=== PATIENT | female | born 1970 | race African-American/Black ===

== ENCOUNTER 2016-05-07 07:46 | Day surgery (SDC) | payer OTHER ==
[2016-05-05 11:39] VITALS: BMI 47.6
--- NOTE | 2016-05-07 08:39 | HP ---
Satellite [facility] - Chief Complaint Chief Complaint: left knee pain - Past Medical History Allergies/Adverse Reactions: Allergies Allergy/AdvReac Type Severity Reaction Status Date / Time No Known Drug Allergies Allergy Verified 11/19/15 22:57 SEAFOOD Allergy Rash Uncoded 11/19/15 22:57 Cardiovascular: Yes: HTN. No: AFIB, Aneurysm, Aortic Insufficiency, Aortic Stenosis, CAD, CHF, Deep Vein Thrombosis, Hyperlipdemia, KS, Mitral Insufficiency, Mitral Stenosis, Murmur, Pulmonary Hypertension, Other ...LMP: 04/29/16 Heme/Onc: No: Anemia, B12 Deficiency, Bleeding Disorder, Cancer, Current Chemotherapy, Current Radiation Therapy, Hemochromatosis, Hypercoaguable State, Myeloproliferative Synd, Sickle Cell Disease, Sickle Cell Trait, Thrombocytopenia, Other Endocrine: Yes: Diabetes Mellitus. No: Stanley's Disease, Oregonia's Disease, Diabetes Insipidus, Hyperparathyroidism, Hyperthyroidism, Hypothyroidism, Osteopenia, SIADH, Other - Current Medications Current Medications: Home Medications Medication Instructions Recorded Lisinopril/Hydrochlorothiazide 20 mg PO DAILY 10/23/12 [Lisinopril-Hctz 20-25 mg Tab] Metformin Xr [Glucophage Xr -] 500 mg PO BID 10/23/12 Hydrochlorothiazide 25 mg PO DAILY 05/05/16 Hydrocodone/Acetaminophen [Depew 1 - 2 each PO Q6H #40 tablet MDD 8 05/07/16 5-325 Tablet] Satellite Physical Exam - Physical Examination Vital Signs: Vital Signs Period Temp Pulse Resp BP Sys/Morales Pulse Ox Last 24 Hr 97.6 F 64 18 145/90 98 General Appearance: Well Nourished, Well Developed, Alert & Oriented x3 ENT: Clear Lung: Normal air movement Heart: Regular rate & rhythm Extremities: Other (left knee- + swelling, decr rom, + mcmurrays, +apleys, nvi) Neurological: Intact, Alert, Oriented Satellite Impression/Plan - Impression/Plan Impression: left knee internal derangement Operative Procedure: left knee arthroscopy Date to be Performed: 05/07/16
[2016-05-07] MEDS ORDERED: MIDAZOLAM HCL 2 MG/2 ML SINGLE DOSE VIAL ONE (09:44)
[2016-05-07] MEDS ORDERED: SUCCINYLCHOLINE CHLORIDE 200 MG/10 ML VIAL ONE (10:11)
[2016-05-07] MEDS ORDERED: ceFAZolin SODIUM 1 GM VIAL IVPB ONE (10:27)
[2016-05-07] MEDS ORDERED: ALBUTEROL SO4 6.7 GM HFA INHALER IH ONE (10:44)
[2016-05-07] MEDS ORDERED: ACETAMINOPHEN INJECTION 100 ML IVPB ONE (10:48)
[2016-05-07] MEDS ORDERED: BUPIVACAINE HCL/PF 0.5% (5MG/ML) 10 ML VIAL IJ ONE (10:55)
[2016-05-07] MEDS ORDERED: ACETAMINOPHEN 1000 MG/100 ML VIAL (NON FORMULARY) IVPB ONE (10:55)
--- NOTE | 2016-05-07 11:04 | OP ---
Operative Note - Note: Operative Date: 05/07/16 Pre-Operative Diagnosis: left knee medial meniscus tear, OA Operation: left knee arthroscopy, partial medial meniscectomy, debridement chondroplasty, excision of plica Findings: OA, Grade IV PF joint, Grade II-III medial compartment, Grade I lateral compartment, medial plica Post-Operative Diagnosis: Same as Pre-op Surgeon: Daniel Stafford Anesthesiologist/PSYCHOLOGY DEPARTMENT CHAIR: Wally Mackey Anesthesia: General, Local Specimens Removed: shavings Estimated Blood Loss (mls): 0 Blood Volume Replaced (mls): 0 Fluid Volume Replaced (mls): 500 Operative Report Dictated: Yes
[2016-05-07] MEDS ORDERED: PROMETHAZINE HCL 25 MG/1 ML VIAL IVPUSH PRN (11:15)
[2016-05-07] MEDS ORDERED: LACTATED RINGERS SOLUTION 1,000 ML IV SCH (11:15)
[2016-05-07] MEDS ORDERED: ONDANSETRON 4 MG/2 ML VIAL IVPUSH PRN (11:15)
[2016-05-07] MEDS ORDERED: oxyCODONE HCL 5 MG TABLET PO PRN (11:15)
[2016-05-07 11:59] VITALS: TEMP 98
[2016-05-07 13:32] VITALS: BP 119/68; PULSE 68
--- NOTE | 2016-05-08 11:33 | OP ---
DATE OF OPERATION: 05/07/2016 PREOPERATIVE DIAGNOSIS: Left knee pain, medial meniscus tear, osteoarthritis. POSTOPERATIVE DIAGNOSIS: Left knee pain, medial meniscus tear, osteoarthritis, plus medial plica. SURGEON: Srinivasan Rooney MD PUMP AND STILL OPERATOR: None. ANESTHESIOLOGIST: Wally Mackey MD ANESTHESIA: LMA anesthesia, local injection of 20 mL of 0.5% Marcaine and 1% lidocaine mixed. . PROCEDURE: Left knee arthroscopy, partial medial meniscectomy, debridement chondroplasty, and plica excision. SPECIMENS: Arthroscopic shavings. DRAINS: None. COMPLICATIONS: None. FLUID REPLACEMENT: 500 mL. INDICATIONS: This patient is a 45-year-old female with a preoperative diagnosis of left knee pain, medial meniscus tear, and osteoarthritis. After understanding the potential risks, complications, alternatives, and benefits of surgical versus nonsurgical treatment, the patient elected to undergo this procedure. DESCRIPTION OF PROCEDURE: The patient was brought to the operating room, peripheral IV placed, and IV sedation was given. Two grams of IV Ancef were given. Ample padding was placed around the left thigh. A tourniquet was applied. C-clamp leg-rangel was applied. Esmarch bandage was used to exsanguinate the left lower extremity. Tourniquet was elevated, the tourniquet inflated to 275 mmHg. A superomedial outflow portal was established, the lateral portal was established, and an arthroscope was introduced into the joint under direct visualization using a spinal needle. The medial portal was established, and a diagnostic arthroscopy was performed. In the medial compartment, the patient was seen to have a complex tear, although it was not that bad, of the posterior horn of the medial meniscus. Patient had grade 2 chondromalacia changes of the medial tibial plateau and widespread grade 2 changes of the medial femoral condyle with small areas of grade 3. Gentle debridement chondroplasty was performed, and a partial medial meniscectomy was performed. Photographs were taken before and after. After the meniscectomy, I probed the medial meniscus and overall it looked quite good, and what was left was stable. I only took out perhaps 10% of the medial meniscus. I then probed the anterior cruciate ligament. There was a small cyclops lesion. This was debrided. I debrided the top portion and the bottom portion of these torn fibers, but the rest of the ACL looked good. I probed it. It had the appropriate tension. I did not need to do anything to the anterior cruciate ligament. Next, our attention turned to the lateral compartment. There was some very mild amount of degenerative type fraying of the lateral meniscus. This was debrided with the shaver. There was some grade 2 chondromalacia of the lateral tibial plateau. This was debrided. The lateral femoral condyle looked good with no arthritis. Next, our attention turned to the patellofemoral joint. Patient had some significant areas of grade 4 and surrounding grade 3 chondromalacia of both the femoral trochlea and the undersurface of the patella. This was debrided with the curved shaver. I did a little synovectomy, and this revealed a significant medial plica. Photographs were taken. It was then excised. This was right in the area of the cartilaginous damage. The area was copiously irrigated and washed out. All instrumentation removed. All excess saline removed. The arthroscopy portal was closed with 3-0 nylon sutures. The area was then washed and dried and covered with Xeroform, 4x4, Webril, and an Rashid bandage. The tourniquet was taken down after a total tourniquet of 20 minutes. There were no complications during the case. The patient tolerated the procedure well, was brought to the ambulatory recovery room in stable condition. SRINIVASAN ROONEY M.D. [id number]
--- NOTE | 2016-05-09 09:27 | PATH ---
Surgical Pathology Report Patient Name: MIRELA FRIAS [facility]. Rec. #: [id number] /Age/Gender: 1970 (Age: 45) / F Account: [id number] Location: [facility] Taken: 05/07/2016 Received: 05/07/2016 Reported: 05/09/2016 Physicians: Daniel Stafford M.D. 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 FIBROCARTILAGE WITH MYXOID DEGENERATIVE CHANGES, ALONG WITH PORTIONS OF SYNOVIUM AND HYALINE CARTILAGE. Electronically Signed Fran Zaragoza M.D. Gross Description Received in formalin, labeled "left knee shavings," is a 3.5 x 2.0 x 0.2 cm aggregate of porter yellow soft tissue fragments. The formalin is filtered and the specimen is entirely submitted in one cassette. 05/07/201605/07/2016
== END 2016-05-07 14:20 | disposition home or self-care (01) ==
LOC: JASU-SURG 07:46
PROVIDERS: ATTEND Orthopaedic Surgery
PROC: 0SBD4ZZ Excision of Left Knee Joint, Percutaneous Endoscopic Approach (ICD-10-PCS; 2016-05-07)
PROC: 0SBD4ZZ Excision of Left Knee Joint, Percutaneous Endoscopic Approach (ICD-10-PCS; principal; 2016-05-07 09:30)
DX: M23.222 Derangement of posterior horn of medial meniscus due to old tear or injury, left knee (principal); M94.262 Chondromalacia, left knee; M17.12 Unilateral primary osteoarthritis, left knee; M67.52 Plica syndrome, left knee
CPT/HCPCS: 29881; G0289; 84703; 88304-TC; 94760; 97116-GP

== ENCOUNTER 2016-06-29 16:20 | Emergency (ER) | payer OTHER ==
[2016-06-29 16:29] VITALS: BMI 48.2
--- NOTE | 2016-06-29 17:26 | PDOC ---
History of Present Illness - General Chief Complaint: Chest Pain Stated Complaint: CHEST PAIN Time Seen by Provider: 06/29/16 17:15 History Source: Patient Exam Limitations: No Limitations - History of Present Illness Initial Comments: 06/29/16 17:32 Midsternal chest pain intermittent with palpitations and irregularities 3 days. Patient states pain is midsternal and chest wall, had some intermittent left arm radiation, has some mild gastritis associated. States this morning started to have a nonproductive but moist cough this morning. Denies fever or earache sore throat pain. Denies recent exercise changes or strenuous activity causing any musculoskeletal problems. No one else at home is ill. Has never had any cardiac issues. Is diabetic using metformin, and states her blood sugars have been running well this morning 03/23/2014 and A1c at 6 most recently. Is hypertensive and is taking lisinopril and hydrochlorothiazide. States today when she had chest pain with radiation and some dizziness, this urged her to come to emergency department for evaluation 06/29/16 17:35 07/02/16 09:48 Timing/Duration: unsure Severity: mild Associated Symptoms: reports: chest pain, fever/chills, malaise. denies: denies symptoms, syncope (dizziness) Past History - Travel Traveled outside of the country in the last 30 days: No Close contact w/someone who was outside of country & ill: No - Past Medical History Allergies/Adverse Reactions: Allergies Allergy/AdvReac Type Severity Reaction Status Date / Time shellfish derived Allergy Severe Hives Verified 05/07/16 08:40 No Known Drug Allergies Allergy Verified 11/19/15 22:57 Home Medications: Ambulatory Orders Lisinopril/Hydrochlorothiazide [Lisinopril-Hctz 20-25 mg Tab] 20 mg PO DAILY 06/02 Metformin Xr [Glucophage Xr -] 500 mg PO BID 10/23/12 Iron 0 mg PO DAILY 06/29/16 Anemia: Yes Asthma: Yes Cancer: No Cardiac Disorders: No CVA: No COPD: No CHF: No Dementia: No Diabetes: Yes GI Disorders: Yes (ULCER) Disorders: No HTN: Yes Hypercholesterolemia: No Liver Disease: No Psychiatric Problems: Yes (ANXIETY.) Seizures: No Thyroid Disease: No - Surgical History Abdominal Surgery: Yes Cholecystectomy: Yes - Psycho/Social/Smoking Cessation Hx Anxiety: Yes Suicidal Ideation: No Smoking Status: Yes Smoking History: Current every day smoker Have you smoked in the past 12 months: Yes Number of Cigarettes Smoked Daily: 4 Information on smoking cessation initiated: No 'Breaking Loose' booklet given: 05/05/16 Hx Alcohol Use: No Drug/Substance Use Hx: No Substance Use Type: None Hx Substance Use Treatment: No Review of Systems - Review of Systems Able to Perform ROS?: Yes Is the patient limited Polish proficient: Yes Constitutional: Yes: Symptoms Reported, See HPI, Loss of Appetite, Malaise. No : Fever HEENTM: Yes: See HPI. No: Symptoms Reported Respiratory: Yes: Symptoms reported, See HPI, Cough. No: Orthopnea, Shortness of Breath, Wheezing Cardiac (ROS): Yes: Symptoms Reported, See HPI, Chest Pain, Irregular Heart Rate , Lightheadedness, Chest Tightness ABD/GI: Yes: Symptoms Reported, See HPI, Indigestion : Yes: See HPI. No: Symptoms Reported Musculoskeletal: Yes: Symptoms Reported Integumentary: Yes: Symptoms Reported, Pallor Neurological: Yes: See HPI. No: Symptoms reported, Headache, Numbness, Paresthesia All Other Systems: Reviewed and Negative *Physical Exam - Vital Signs Last Vital Signs Temp Pulse Resp BP Pulse Ox 97.9 F 70 20 159/96 95 06/29/16 16:26 06/29/16 16:26 06/29/16 16:26 06/29/16 16:26 06/29/16 16:26 - Physical Exam General Appearance: Yes: Nourished, Appropriately Dressed, Apparent Distress, Mild Distress HEENT: positive: MICHAEL, Normal ENT Inspection, TMs Normal, Pharynx Normal Neck: positive: Supple. negative: Tender, Lymphadenopathy (R), Lymphadenopathy (L) Respiratory/Chest: positive: Lungs Clear, Normal Breath Sounds (no wheezing or retractions, no respiratory distress) Cardiovascular: positive: Regular Rhythm, Regular Rate Gastrointestinal/Abdominal: positive: Tender (mild and diffuse, no rebound or guarding), Soft, Guarding, Rebound. negative: Hepatomegaly, Spleenomegaly Musculoskeletal: positive: Normal Inspection. 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 Will probably need admission and patient understands will have probable need for admission due to her risk factors, and symptomatology. *DC/Admit/Observation/Transfer Diagnosis at time of Disposition: Chest pain Qualifiers: Chest pain type: unspecified Qualified Code(s): R07.9 - Chest pain, unspecified - Discharge Dispostion Condition at time of disposition: Stable Admit: Yes - Referrals Referrals: STAFF,NOT ON [Primary Care Provider] -
[2016-06-29] MEDS ORDERED: ASPIRIN 81 MG CHEWABLE TABLETS PO ONE (17:27)
[2016-06-29] MEDS ORDERED: ASPIRIN 81 MG CHEWABLE TABLETS ONE (17:35)
[2016-06-29 17:57] LABS: BASOPHIL 0.6 % (0-2.0); EOSINOPHIL 2.6 % (0-4.5); MCH 24.5 pg (25.7-33.7); MEAN CELL VOLUME 76.7 fl (80-96); MEAN PLT VOLUME 8.5 fl (7.5-11.1); NEUTROPHILS 62.2 % (42.8-82.8); PLATELET COUNT 236 K/MM3 (134-434); RDW 24.5 % (11.6-15.6); WHITE BLOOD COUNT 5.2 K/mm3 (4.0-10.0)
[2016-06-29] MEDS ORDERED: ACETAMINOPHEN 1000 MG/100 ML VIAL (NON FORMULARY) IVPB ONE (18:02)
[2016-06-29 18:09] LABS: INR 0.87 (0.82-1.09); PROTHROMBIN TIME (PATIENT) 9.5 SEC (9.98-11.88)
[2016-06-29] MEDS ORDERED: ACETAMINOPHEN INJECTION 100 ML IVPB ONE (18:10)
[2016-06-29 18:27] LABS: ALBUMIN 3.7 g/dl (3.4-5.0); ANION GAP 9 (8-16); BILIRUBIN,TOTAL 0.3 mg/dL (0.2-1.0); CO2 29 mmol/L (21-32); COCKROFT - GAULT 135.3625; CREATININE 1.1 mg/dL (0.55-1.02); GLUCOSE,RANDOM 105 mg/dL (74-106); MAGNESIUM 1.9 mg/dL (1.8-2.4); SGOT/AST 25 U/L (15-37); SGPT/ALT 52 U/L (12-78); TOT PROT 7.6 g/dl (6.4-8.2)
[2016-06-29 18:30] LABS: ALK PHOS 100 U/L (45-117); TROPONIN I < 0.02 ng/ml (0.00-0.05)
[2016-06-29 18:43] LABS: ANISOCYTOSIS 2+; MICROCYTOSIS 1+; OVALOCYTES FEW; PLATELET ESTIMATE ADEQUATE (NORMAL)
--- NOTE | 2016-06-29 23:07 | CONSULT ---
Addendum entered and electronically signed by Dipak Josue RES 06/30/16 04: 37: Orthostatic BP: Supine: 120/62 Hr 62 Sittin/71 Hr 65 Standin/76 HR 72 Original Note: Consultation: REQUESTING PROVIDER: CONSULT REQUEST: We have been asked to medically evaluate this patient for intermittent chest pain. HISTORY OF PRESENT ILLNESS: 45 yr old woman with NIDDM, HTN, morbid obesity, anemia, current smoker, presents with 2 weeks of intermittent left sided "pressure-like" chest pain, left shoulder and left arm pain associated with intermittent palpitations, "skipped beats," dizziness and generalized body aches. The chest pain has been continuous since it started, associated symptoms are intermittent lasting few seconds to minutes. Dizziness occurs when she stands from a sitting position and when she sits up suddenly and resolves quickly. Symptoms would occur at rest and with walking with no alleviating or exacerbating factors. She has also been having "hot flashes" that last few minutes associated with the palpitations and an intermittent non-productive cough that started this morning. She started to take 81mg of ASA every other day for the past two weeks for the chest pain without relief. While watching TV this morning she had a 1-2 minute episode of left arm tingling and numbness that self-resolved which prompted her to come to the ED. She denies loss of muscle tone or pain during the episodes. For the past week she had an "abscess" in her mouth, under the left molar that "popped" on thursday while she was sleeping. Medical hx: DM, HTN, anemia requiring multiple transfusions Surgical hx: 2004 cholecystectomy, 1998 and 1999 c-sections, 1999 tubal ligation , ectopic with left fallopian tube removed 1991. may 07 2016 b/l meniscal and ACL repair. Family hs: 3 brother from unknown cancer, mother with HTN and DM. Allergies seafood- hives and scratchy throat Social: smoking started age 11, started with 3pks/day then 1pk/day for 1 yr and now currently 5cig/week ETOH: socially Drug: denies REVIEW OF SYSTEMS: CONSTITUTIONAL: Present: generalized aches Absent: fever, chills, diaphoresis, generalized weakness, malaise, loss of appetite, weight change HEENT: Absent: rhinorrhea, nasal congestion, throat pain, throat swelling, difficulty swallowing, mouth swelling, ear pain, eye pain, visual changes CARDIOVASCULAR: Present: chest pain, irregular heart rate, Absent: syncope, palpitations,lightheadedness, peripheral edema RESPIRATORY: Present:cough, Absent: shortness of breath, dyspnea with exertion, orthopnea, wheezing, stridor, hemoptysis GASTROINTESTINAL: Absent: abdominal pain, abdominal distension, nausea, vomiting, diarrhea, constipation, melena, hematochezia GENITOURINARY: Absent: dysuria, frequency, urgency, hesitancy, hematuria, flank pain, genital pain MUSCULOSKELETAL: Absent: myalgia, arthralgia, joint swelling, back pain, neck pain SKIN: Absent: rash, itching, pallor HEMATOLOGIC/IMMUNOLOGIC: Absent: easy bleeding, easy bruising, lymphadenopathy, frequent infections ENDOCRINE: Absent: unexplained weight gain, unexplained weight loss, heat intolerance, cold intolerance NEUROLOGIC: Absent: headache, focal weakness or paresthesias, dizziness, unsteady gait, seizure, mental status changes, bladder or bowel incontinence PSYCHIATRIC: Absent: anxiety, depression, suicidal or homicidal ideation, hallucinations. PHYSICAL EXAMINATION Vital Signs - 24 hr 06/29/16 06/29/16 06/29/16 16:26 17:31 19:32 Temperature 97.9 F 98.5 F Pulse Rate 70 Pulse Rate [ 72 Radial] Respiratory 20 21 Rate Blood Pressure 159/96 Blood Pressure 154/83 [Arm] O2 Sat by Pulse 95 98 96 Oximetry (%) GENERAL: Awake, alert, and fully oriented, in no acute distress. HEAD: Normal with no signs of trauma. EYES: Pupils equal, round and reactive to light, extraocular movements intact, sclera anicteric, conjunctiva clear. No lid lag. EARS, NOSE, THROAT: Ears normal, nares patent, oropharynx clear without exudates. Moist mucous membranes. NECK: Normal range of motion, supple without lymphadenopathy, JVD, or masses. LUNGS: Breath sounds equal, clear to auscultation bilaterally. No wheezes, and no crackles. No accessory muscle use. HEART: Regular rate and rhythm, normal S1 and S2 without murmur, rub or gallop. ABDOMEN: morbidly obese, soft, nontender, not distended, normoactive bowel sounds, no guarding, no rebound, no masses. MUSCULOSKELETAL: Normal range of motion at all joints. No bony deformities. No CVA tenderness. chest nontender. left shoulder mild ttp. ttp b/l knees UPPER EXTREMITIES: 2+ pulses, warm, well-perfused. No cyanosis. No clubbing. Cap refill <2 seconds. No peripheral edema. LOWER EXTREMITIES: 2+ pulses, warm, well-perfused. No calf tenderness. No peripheral edema. NEUROLOGICAL: Cranial nerves II-XII intact. Normal speech. Normal gait. PSYCHIATRIC: Cooperative. Good eye contact. Appropriate mood and affect. SKIN: Warm, dry, normal turgor, no rashes or lesions noted. Laboratory Results - last 24 hr 06/29/16 06/29/16 06/29/16 17:45 17:45 17:45 WBC 5.2 RBC 5.08 Hgb 12.5 D Hct 39.0 D MCV 76.7 L MCHC 32.0 RDW 24.5 H Plt Count 236 MPV 8.5 Neutrophils % 62.2 Lymphocytes % 27.3 Monocytes % 7.3 Eosinophils % 2.6 Basophils % 0.6 Platelet Estimate Adequate Platelet Comment No clumping noted Anisocytosis 2+ Microcytosis 1+ Ovalocytes Few INR 0.87 Sodium 142 Potassium 3.3 L Chloride 104 Carbon Dioxide 29 Anion Gap 9 BUN 16 D Creatinine 1.1 H Creat Clearance w eGFR 53.24 Random Glucose 105 Calcium 9.0 Magnesium 1.9 Total Bilirubin 0.3 D AST 25 ALT 52 D Alkaline Phosphatase 100 Creatine Kinase 132 Troponin I < 0.02 Total Protein 7.6 Albumin 3.7 ASSESSMENT/PLAN: 45 year old woman with morbid obesity, HTN and NIDDM presents with chest pain and generalized body aches for two weeks. - Heart score 3, GREGG score 2, Trops x2 negative, EKG in NSR without acute ischemic changes. Low suspicion for ACS, recommend patient follow-up with [facility] as outpatient for stress test and further cardiac evaluation. - She is afebrile without leucocytosis with clear chest xray and was flu swab negative, unlikely that infection is the cause of her symptoms. - TSH is within normal limits as well as random glucose level. - elevated creatinine likely due to increased ASA intake during past 2 weeks. Differential is broad and included cardiac, infectious or endocrine in etiology however work-up currently is negative. Patient is stable for outpatient follow- up with PCP and cardiology. Counseling provided for smoking cessation, healthy diet and exercise. Instructions provided to return to hospital if symptoms worsen or any new symptoms develop. Visit type - Emergency Visit Emergency Visit: Yes Care time: The patient presented to the Emergency Department on the above date and was hospitalized for further evaluation of their emergent condition. - New Patient This patient is new to me today: Yes Date on this admission: 06/29/16 - Critical Care Critical Care patient: No
[2016-06-30 00:09] VITALS: BP 145/79; PULSE 78; TEMP 98.7
--- NOTE | 2016-06-30 11:26 | EKG ---
Test Reason : Blood Pressure : / mmHG Vent. Rate : 069 BPM Atrial Rate : 069 BPM P-R Int : 160 ms QRS Dur : 082 ms QT Int : 414 ms P-R-T Axes : 035 045 018 degrees QTc Int : 443 ms NORMAL SINUS RHYTHM NORMAL ECG WHEN COMPARED WITH ECG OF 30-MAR-2015 18:56, NO SIGNIFICANT CHANGE WAS FOUND Confirmed by STUART MORALEZ MD ([id number]) on 06/30/2016 11:25:36 AM Referred By: Confirmed By:STUART MORALEZ MD
== END 2016-06-30 00:10 ==
LOC: JER 16:20
PROC: 3E033NZ Introduction of Analgesics, Hypnotics, Sedatives into Peripheral Vein, Percutaneous Approach (ICD-10-PCS; principal; 2016-06-29)
DX: R07.89 Other chest pain (principal); I10 Essential (primary) hypertension; E11.9 Type 2 diabetes mellitus without complications; Z79.84 Long term (current) use of oral hypoglycemic drugs; E66.01 Morbid (severe) obesity due to excess calories; Z68.42 Body mass index [BMI] 45.0-49.9, adult
CPT/HCPCS: 36415; 71010-TC; 80053; 82550; 83735; 84443; 84484; 85025; 85610; 87804; 93005; 93010; 96374; 99285-25

== ENCOUNTER 2016-12-13 12:36 | Emergency (ER) | payer OTHER ==
[2016-12-13 12:48] VITALS: BP 137/64; PULSE 87; TEMP 98.4; BMI 48.7
[2016-12-13] MEDS ORDERED: ACETAMINOPHEN 1000 MG/100 ML VIAL (NON FORMULARY) IVPB ONE (13:09)
[2016-12-13] MEDS ORDERED: METHOCARBAMOL 500 MG TABLET PO ONE (13:09)
--- NOTE | 2016-12-13 13:10 | PDOC ---
History of Present Illness - General Chief Complaint: Weakness Stated Complaint: LETHARGIC (PCP SENT) Time Seen by Provider: 12/13/16 12:55 History Source: Patient Exam Limitations: No Limitations - History of Present Illness Initial Comments: 12/13/16 13:07 This is a 46 yo F with h/o DM, HTN, Anemia related to fibroids Pt presents to the ER with a complaint of weakness, dizziness, shortness of breath with exertion Pt states, she was seen by her PMD on 12/07, labs sent, Hgb 11 Pt states that she has had shortness of breath on exertion she noted dizziness (no vertigo) with exertion, she states that she is out of breath after 1/2 block She also notes bodyaches diffusely which has also been present for the past month She has been taking Aleeve for her pain which seems to be the only thing that helps her No fevers or chills No recent travel PMH: Gastric Ulcer, HTN, DM, Anemia secondary to fibroids PSH: C section x 2, R- oophorectomy Meds: Lisinopril, HCTZ, Metformin, Iron, Mobic ALL: Shellfish --> hives, denies drug use, social alcohol, tobacco: 1pack per week, lives with , independent ADLs 12/13/16 13:10 GENERAL/CONSTITUTIONAL: Yes: weakness No: fever, chills, loss of appetite. HEAD, EYES, EARS, NOSE AND THROAT: No: change in vision, ear pain, discharge, sore throat, throat swelling. CARDIOVASCULAR: No: chest pain, lightheadedness, palpitations, syncope RESPIRATORY: Yes: shortness of breath No: cough GASTROINTESTINAL: No: nausea, vomiting, diarrhea, abdominal pain GENITOURINARY: No: dysuria, hematuria, frequency, urgency, flank pain. MUSCULOSKELETAL: Yes: muscle pain, skin pain, No: back pain, neck pain SKIN: No: rash or easy bruising. NEUROLOGIC: No: headache, vertigo, paresthesias, weakness GENERAL: The patient is in no acute distress. HEAD: Normal with no signs of trauma. EYES: PERRLA, EOMI, sclera are not pale ENT: Ears normal, nares patent, oropharynx clear without exudates. Dry mucous membranes. NECK: Normal range of motion, supple without lymphadenopathy, JVD, or masses. LUNGS: Breath sounds equal, clear to auscultation bilaterally. No wheezes, and no crackles. HEART:Regular rate and rhythm, normal S1 and S2 without murmur, rub or gallop. ABDOMEN: Soft, nontender, normoactive bowel sounds. No guarding, no rebound. EXTREMITIES: Normal range of motion, no edema. Diffuse muscle tenderness to palpation NEUROLOGICAL: Cranial nerves II through XII grossly intact. Normal speech. No focal neurological deficits. MUSCULOSKELETAL: Diffuse muscle aches SKIN: Warm, normal turgor, no rashes or lesions noted. 12/13/16 13:23 Past History - Past Medical History Allergies/Adverse Reactions: Allergies Allergy/AdvReac Type Severity Reaction Status Date / Time shellfish derived Allergy Severe Hives Verified 12/13/16 12:48 No Known Drug Allergies Allergy Verified 12/13/16 12:48 Home Medications: Ambulatory Orders Lisinopril/Hydrochlorothiazide [Lisinopril-Hctz 20-25 mg Tab] 20 mg PO DAILY 06/02 Metformin Xr [Glucophage Xr -] 500 mg PO BID 10/23/12 Iron 0 mg PO DAILY 06/29/16 Anemia: Yes Asthma: Yes Cancer: No Cardiac Disorders: No CVA: No COPD: No CHF: No Dementia: No Diabetes: Yes GI Disorders: Yes (ULCER) Disorders: No HTN: Yes Hypercholesterolemia: No Liver Disease: No Psychiatric Problems: Yes (ANXIETY.) Seizures: No Thyroid Disease: No - Surgical History Abdominal Surgery: Yes Cholecystectomy: Yes - Suicide/Smoking/Psychosocial Hx Smoking Status: Yes Smoking History: Current every day smoker Have you smoked in the past 12 months: Yes Number of Cigarettes Smoked Daily: 4 Information on smoking cessation initiated: No 'Breaking Loose' booklet given: 05/05/16 Hx Alcohol Use: No Drug/Substance Use Hx: No Substance Use Type: None Hx Substance Use Treatment: No *Physical Exam - Vital Signs Last Vital Signs Temp Pulse Resp BP Pulse Ox 98.4 F 87 20 137/64 97 12/13/16 12:43 12/13/16 12:43 12/13/16 12:43 12/13/16 12:43 12/13/16 12:43 ED Treatment Course - LABORATORY CBC & Chemistry Diagram: 12/13/16 13:40 12/13/16 13:40 Medical Decision Making - Medical Decision Making 12/13/16 13:49 This pt is a 46 yo F presenting to the ER with a complaint of exertional symptoms and diffuse body aches All symptoms present for the past month She typically feels this way in the setting of anemia, however she had blood work done 6 days ago and they are significant for a Hgb of 11 DD: Anemia, electrolyte abnormality, rheumatological disorder Will do labs Will do x ray Will re assess Will give medications for pain 12/13/16 14:42 Laboratory Tests 12/13/16 12/13/16 13:40 13:40 WBC 4.7 Hgb 12.4 Hct 38.8 Plt Count 254 Neutrophils % 69.9 Lymphocytes % 19.4 D Sodium 143 Potassium 3.2 L Chloride 107 Carbon Dioxide 27 BUN 14 Creatinine 1.0 Random Glucose 157 H D Creatine Kinase 259 H Troponin I < 0.02 Labs show: No evidence of anemia (which would require transfusion) Cardiac labs nml, ekg nml Will discharge to home Will ask pt to follow up with PMD and with Rheumatology? 12/13/16 15:10 Pt does not take lipitor Pt has no signs of rhabdo Unclear the etiology of her diffuse body aches Pt asked to follow up with Dr. Corey or Rheumatology Return to the ER for any other concerns or complaints *DC/Admit/Observation/Transfer Diagnosis at time of Disposition: Muscle ache - Discharge Dispostion Disposition: HOME Condition at time of disposition: Stable Admit: No - Referrals Referrals: Essie Funk MD [Primary Care Provider] - Guille Corey MD [Staff Physician] - - Patient Instructions Printed Discharge Instructions: DI for Muscle Weakness, DI for Arthralgia Additional Instructions: Shirley Gordo Thank you for coming in to the ER today Your blood counts are stable, no anemia today Please follow up with your primary care physician within 1 week Please also follow up with a supervisor research kennel for evaluation of your diffuse body/ muscle pains Please return to the ER for fevers, chills, any other concerns or complaints
[2016-12-13] MEDS ORDERED: METHOCARBAMOL 500 MG TABLET ONE (13:55)
[2016-12-13] MEDS ORDERED: ACETAMINOPHEN INJECTION 100 ML IVPB ONE (13:56)
[2016-12-13 13:57] LABS: BASOPHIL 0.5 % (0-2.0); EOSINOPHIL 2.8 % (0-4.5); MCH 25.1 pg (25.7-33.7); MEAN CELL VOLUME 78.5 fl (80-96); MEAN PLT VOLUME 8.8 fl (7.5-11.1); NEUTROPHILS 69.9 % (42.8-82.8); PLATELET COUNT 254 K/MM3 (134-434); RDW 19.9 % (11.6-15.6); WHITE BLOOD COUNT 4.7 K/mm3 (4.0-10.0)
[2016-12-13 14:28] LABS: ALBUMIN 3.6 g/dl (3.4-5.0); ANION GAP 9 (8-16); CALCIUM 8.8 mg/dL (8.5-10.1); CO2 27 mmol/L (21-32); GLUCOSE,RANDOM 157 mg/dL (74-106); SGOT/AST 24 U/L (15-37); SGPT/ALT 46 U/L (12-78)
[2016-12-13 14:32] LABS: ALK PHOS 102 U/L (45-117); BILIRUBIN,TOTAL 0.4 mg/dL (0.2-1.0); CPK 259 IU/L (26-192); TOT PROT 7.5 g/dl (6.4-8.2); TROPONIN I < 0.02 ng/ml (0.00-0.05)
== END 2016-12-13 15:43 | disposition home or self-care (01) ==
LOC: JER 12:36
DX: M79.1 Myalgia (principal); I10 Essential (primary) hypertension; E11.9 Type 2 diabetes mellitus without complications; D50.8 Other iron deficiency anemias; F31.9 Bipolar disorder, unspecified; J45.909 Unspecified asthma, uncomplicated; F17.210 Nicotine dependence, cigarettes, uncomplicated
CPT/HCPCS: 36415; 71010-TC; 80053; 82553; 84484; 85025; 86850; 86900; 86901; 99282-25

== ENCOUNTER 2017-03-10 10:33 | Inpatient (IN) | payer OTHER ==
[2017-03-03 17:59] VITALS: BMI 48.6
--- NOTE | 2017-03-09 09:45 | HP ---
[facility] - Chief Complaint Chief Complaint: left knee pain - Past Medical History Allergies/Adverse Reactions: Allergies Allergy/AdvReac Type Severity Reaction Status Date / Time shellfish derived Allergy Severe Hives Verified 03/03/17 17:51 No Known Drug Allergies Allergy Verified 03/03/17 17:51 Cardiovascular: Yes: HTN. No: AFIB, Aneurysm, Aortic Insufficiency, Aortic Stenosis, CAD, CHF, Deep Vein Thrombosis, Hyperlipdemia, VT, Mitral Insufficiency, Mitral Stenosis, Murmur, Pulmonary Hypertension, Other ...LMP: 04/29/16 Heme/Onc: No: Anemia, B12 Deficiency, Bleeding Disorder, Cancer, Current Chemotherapy, Current Radiation Therapy, Hemochromatosis, Hypercoaguable State, Myeloproliferative Synd, Sickle Cell Disease, Sickle Cell Trait, Thrombocytopenia, Other Endocrine: Yes: Diabetes Mellitus. No: Clanton's Disease, Melinda's Disease, Diabetes Insipidus, Hyperparathyroidism, Hyperthyroidism, Hypothyroidism, Osteopenia, SIADH, Other - Current Medications Current Medications: Home Medications Medication Instructions Recorded Lisinopril/Hydrochlorothiazide 20 mg PO DAILY 10/23/12 [Lisinopril-Hctz 20-25 mg Tab] Metformin Xr [Glucophage Xr -] 500 mg PO BID 10/23/12 Iron 0 mg PO DAILY 06/29/16 Naproxen [Naprosyn -] 500 mg PO BID 03/03/17 [facility]ellite Physical Exam - Physical Examination General Appearance: Well Nourished, Well Developed, Alert & Oriented x3 ENT: Clear Lung: Normal air movement Heart: Regular rate & rhythm Extremities: Other (left knee- + swelling, + ttp, decr rom, nvi xrays show grade 4 tricompartmental djd) Neurological: Intact, Alert, Oriented Satellite Impression/Plan - Impression/Plan Impression: left knee djd Operative Procedure: left arnaud tkr Date to be Performed: 03/10/17
[2017-03-10] MEDS ORDERED: TRANEXAMIC ACID 1000 MG/10 ML VIAL IVPUSH ONE (11:06)
[2017-03-10] MEDS ORDERED: CEFAZOLIN 2 GM in DEXTROSE 5%-WATER - 50 ML IVPB ONE (11:06)
[2017-03-10] MEDS: CELECOXIB 200 MG CAPSULE PO ONE (11:25)
[2017-03-10] MEDS: GABAPENTIN 300 MG CAPSULE (FP) PO ONE (11:25)
[2017-03-10] MEDS: oxyCODONE HCL 10 MG SUSTAINED ACTING TABLET PO ONE (11:25)
[2017-03-10] MEDS ORDERED: DEXAMETHASONE SOD PHOSPHATE/PF 10 MG/ML SDV ONE (11:42)
[2017-03-10] MEDS ORDERED: MIDAZOLAM HCL 2 MG/2 ML SINGLE DOSE VIAL ONE ×2 (11:43→11:44)
[2017-03-10] MEDS ORDERED: BUPIVACAINE HCL/PF 2.5 MG/ML - 30 ML VIAL IJ ONE (11:44)
[2017-03-10] MEDS ORDERED: VANCOMYCIN 1,000 MG VIAL (RESTRICTED TO ID ONLY) ONE (11:53)
[2017-03-10] MEDS ORDERED: ceFAZolin SODIUM 1 GM VIAL ONE ×2 (11:53→12:56)
[2017-03-10] MEDS ORDERED: TRANEXAMIC ACID 1000 MG/10 ML VIAL ONE (12:56)
[2017-03-10] MEDS ORDERED: PROPOFOL 20 ML ONE ×2 (12:56)
[2017-03-10] MEDS ORDERED: ONDANSETRON 4 MG/2 ML VIAL ONE (12:56)
[2017-03-10] MEDS ORDERED: DEXAMETHASONE SOD PHOSPHATE 4 MG/1 ML VIAL ONE (12:56)
[2017-03-10] MEDS ORDERED: ePHEDrine SULFATE 50 MG/1 ML AMPULE ONE (13:03)
[2017-03-10] MEDS ORDERED: VANCOMYCIN 1,000 MG VIAL (RESTRICTED TO ID ONLY) IVPB ONE (14:24)
[2017-03-10] MEDS ORDERED: MAG HYDROX/AL HYDROX/SIMETH 30 ML UNIT-DOSE CUP PO PRN (14:59)
[2017-03-10] MEDS ORDERED: ONDANSETRON 4 MG/2 ML VIAL IVPUSH PRN ×2 (14:59→15:17)
[2017-03-10] MEDS ORDERED: MAGNESIUM HYDROX 2400MG/30ML ORAL SUSPENSION 30 ML CUP PO PRN (14:59)
[2017-03-10] MEDS ORDERED: LACTATED RINGERS SOLUTION 1,000 ML IV SCH (15:00)
--- NOTE | 2017-03-10 15:03 | OP ---
Operative Note - Note: Operative Date: 03/10/17 (german) Pre-Operative Diagnosis: left knee djd Operation: left arnaud tkr Post-Operative Diagnosis: Same as Pre-op Surgeon: Mahad Ayon Cycle Director: Todd Rousseau Anesthesiologist/TOOL KEEPER: Randolph Culp Anesthesia: Spinal, Local Specimens Removed: bone fragments Estimated Blood Loss (mls): 150 Operative Report Dictated: Yes
[2017-03-10] MEDS ORDERED: ONDANSETRON 4 MG/2 ML VIAL IVPUSH ONE (15:12)
[2017-03-10] MEDS ORDERED: PROMETHAZINE HCL 25 MG/1 ML VIAL IVPUSH PRN (15:17)
[2017-03-10] MEDS ORDERED: oxyCODONE HCL 5 MG TABLET PO PRN (15:17)
[2017-03-10] MEDS ORDERED: ACETAMINOPHEN 325 MG TABLET (FP) ONE (15:42)
[2017-03-10] MEDS ORDERED: ACETAMINOPHEN 325 MG TABLET (FP) PO ONE (16:00)
[2017-03-10] MEDS: INSULIN SLIDING SCALE (NOVOLOG) 1 VIAL SQ SCH (17:00)
[2017-03-10] MEDS: ACETAMINOPHEN 325 MG TABLET (FP) PO SCH ×2 (17:00→21:42)
[2017-03-10] MEDS: oxyCODONE HCL 5 MG TABLET PO PRN ×2 (18:56→21:41)
[2017-03-10] MEDS: SENNOSIDES/DOCUSATE COMBO (SENNA PLUS) TABLET (UD) PO SCH (21:41)
[2017-03-10] MEDS: GABAPENTIN 300 MG CAPSULE (FP) PO SCH (21:41)
[2017-03-10] MEDS: oxyCODONE HCL 10 MG SUSTAINED ACTING TABLET PO SCH (21:42)
[2017-03-10] MEDS: CEFAZOLIN 2 GM/D5W 2 GM/50 ML ML IVPB SCH (21:42)
[2017-03-11] MEDS: oxyCODONE HCL 5 MG TABLET PO PRN ×4 (01:11→21:35)
[2017-03-11] MEDS: ACETAMINOPHEN 325 MG TABLET (FP) PO SCH ×4 (04:28→21:36)
[2017-03-11] MEDS: CEFAZOLIN 2 GM/D5W 2 GM/50 ML ML IVPB SCH (05:27)
[2017-03-11] MEDS: GABAPENTIN 300 MG CAPSULE (FP) PO ONE (08:10)
[2017-03-11] MEDS: oxyCODONE HCL 10 MG SUSTAINED ACTING TABLET PO ONE (08:10)
[2017-03-11] MEDS: CELECOXIB 200 MG CAPSULE PO ONE (08:10)
[2017-03-11] MEDS: INSULIN SLIDING SCALE (NOVOLOG) 1 VIAL SQ SCH ×4 (08:11→21:49)
[2017-03-11 08:15] LABS: HEMATOCRIT 35.1 % (32.4-45.2); WHITE BLOOD COUNT 9.3 K/mm3 (4.0-10.8)
[2017-03-11 08:20] LABS: HEMOGLOBIN 11.4 GM/dl (10.7-15.3); MCH 25.2 pg (25.7-33.7); MCHC 32.6 g/dl (32.0-36.0); MEAN CELL VOLUME 77.4 fl (80-96); MEAN PLT VOLUME 10.1 fl (7.5-11.1); PLATELET COUNT 254 K/MM3 (134-434); RBC 4.54 M/mm3 (3.60-5.2); RDW 17.7 % (11.6-15.6)
[2017-03-11] MEDS: ASPIRIN 325 MG TABLET PO SCH (08:35)
[2017-03-11] MEDS: GABAPENTIN 300 MG CAPSULE (FP) PO SCH ×2 (09:59→21:36)
[2017-03-11] MEDS: SENNOSIDES/DOCUSATE COMBO (SENNA PLUS) TABLET (UD) PO SCH ×2 (09:59→21:36)
[2017-03-11] MEDS: MULTIVITAMINS (DAILY MVI) TABLET (FP) PO SCH (09:59)
[2017-03-11] MEDS: HYDROCHLOROTHIAZIDE 25 MG TABLET (FP) PO SCH (09:59)
[2017-03-11] MEDS: LISINOPRIL 20 MG TABLET (FP) PO SCH (09:59)
[2017-03-11] MEDS: FERROUS SO4 325 MG TABLET (FP) PO SCH (09:59)
[2017-03-11] MEDS: oxyCODONE HCL 10 MG SUSTAINED ACTING TABLET PO SCH ×2 (09:59→21:37)
[2017-03-11] MEDS: PANTOPRAZOLE 40 MG TABLET (FP) PO SCH (09:59)
[2017-03-11] MEDS ORDERED: PATIENT'S OWN MEDICATION (NON-FORMULARY) (Ferrous Sulfate [Feosol] 325 MG) PO SCH (10:00)
[2017-03-11] MEDS ORDERED: PATIENT'S OWN MEDICATION (NON-FORMULARY) (Lisinopril/Hydrochlorothiazide [Lisinopril-Hctz PO SCH (10:00)
--- NOTE | 2017-03-11 11:13 | PN ---
Progress Note (short form) - Note Progress Note: 46F POD1 s/p L TKR under spinal anesthetic with peripheral nerve blocks for post operative pain. Pt states that pain is well controlled, reports no anesthetic complications. Sensory and motor function intact in bilateral lower extremities.
--- NOTE | 2017-03-11 11:19 | PN ---
Progress Note (short form) - Note Progress Note: Ortho Pt seen and examined s/p left arnaud tkr pod #1 Selected Entries 03/11/17 06:06 Temperature 97.6 F Pulse Rate 86 Respiratory 20 Rate Blood Pressure 125/96 Laboratory Tests 03/11/17 07:30 WBC 9.3 Hgb 11.4 Hct 35.1 Plt Count 254 dressing saturated, calf soft, nt rom 0-50, nvi a/p dressing changed PT dvt ppx pain control d/c planning for rehab
[2017-03-11] MEDS ORDERED: PT OWN MED DRAWER 7, Y5N ONE (15:32)
[2017-03-12] MEDS: oxyCODONE HCL 5 MG TABLET PO PRN ×2 (01:03→06:16)
[2017-03-12] MEDS: ACETAMINOPHEN 325 MG TABLET (FP) PO SCH ×2 (05:00→09:26)
[2017-03-12] MEDS: INSULIN SLIDING SCALE (NOVOLOG) 1 VIAL SQ SCH (06:16)
[2017-03-12 06:21] VITALS: BP 112/53; PULSE 83; TEMP 98.5
--- NOTE | 2017-03-12 08:45 | PN ---
Progress Note (short form) - Note Progress Note: Ortho Pt seen and examined s/p left arnaud tkr pod #2 Selected Entries 03/12/17 06:00 Temperature 98.5 F Pulse Rate 83 Respiratory 19 Rate Blood Pressure 112/53 Laboratory Tests 03/12/17 07:30 WBC Pending Hgb Pending Hct Pending Plt Count Pending dressing with less draiange today, calf soft, nt rom 0-50, nvi a/p dressing changed PT dvt ppx pain control d/c home today f/u in 1 week
--- NOTE | 2017-03-12 08:46 | DS ---
Physical Examination Vital Signs: Vital Signs Temperature 98.5 F 03/12/17 06:00 Pulse Rate 83 03/12/17 06:00 Respiratory Rate 19 03/12/17 06:00 Blood Pressure 112/53 03/12/17 06:00 O2 Sat by Pulse Oximetry (%) 97 03/11/17 22:59 Discharge Summary Reason For Visit: OSTEOARTHRITIS Procedures: Principal: s/p left arnaud tkr Hospital Course: admitted fro elective left arnaud tkr, uneventful post-op, stable for d/c Condition: Good - Instructions Diet, Activity, Other Instructions: Post-op Instructions-Total Knee Replacement Call the office for a follow-up appointment in 1 week - [phone] Aspirin 325mg daily for 6 weeks. Pain medication was sent into your pharmacy. Apply Graduated Compression Stockings (TEDs) to both lower extremities- remove daily for hygiene ONLY Apply Sequential Compression Device (SCDs) to both Lower extremities remove for PT and hygiene ONLY Apply cold packs to affected area for 15 minutes every 2 hours. Physical Therapist will come to your home for the first 5 days. You will be set up with outpatient PT at your first post-operative visit. Patient may ambulate as tolerated-encourage self care (at least every 2-3 hours while awake) with walker or cane Keep dressing dry and intact CONTACT THE OFFICE FOR ANY CHANGE IN YOUR CONDITION (for example-fever greater than 102 degrees, excessive bleeding from operative site, purulent drainage, severe swelling or pain) GO TO THE EMERGENCY ROOM IF THERE IS A MEDICAL EMERGENCY Knee Precautions: * Keep a rolled towel under affected heel while in bed or chair (to keep knee in extension) * Keep affected leg elevated except during mealtimes * DO NOT PLACE PILLOW UNDER AFFECTED KNEE * If you have any questions, please do not hesitate to call the office - . Referrals: Mahad Ayon MD [Staff Physician] - Disposition: VNS/HOME HEALTH CARE - Home Medications Comprehensive Discharge Medication List: Ambulatory Orders Lisinopril/Hydrochlorothiazide [Lisinopril-Hctz 20-25 mg Tab] 20 mg PO DAILY 06/02 Metformin Xr [Glucophage Xr -] 500 mg PO BID 10/23/12 Aspirin [ASA -] 325 mg PO DAILY@0800 tablet 03/10/17 Ferrous Sulfate [Feosol] 325 mg PO DAILY 03/10/17 Oxycodone HCl/Acetaminophen [Percocet 5-325 mg Tablet] 1 - 2 tab PO Q6H #50 tab MDD 8 03/10/17
[2017-03-12 08:52] LABS: HEMOGLOBIN 10.9 GM/dl (10.7-15.3); MCH 25.6 pg (25.7-33.7); MEAN CELL VOLUME 77.8 fl (80-96); MEAN PLT VOLUME 10.7 fl (7.5-11.1); PLATELET COUNT 223 K/MM3 (134-434); RBC 4.24 M/mm3 (3.60-5.2); RDW 17.5 % (11.6-15.6); WHITE BLOOD COUNT 8.3 K/mm3 (4.0-10.8)
[2017-03-12] MEDS: PANTOPRAZOLE 40 MG TABLET (FP) PO SCH (09:25)
[2017-03-12] MEDS: SENNOSIDES/DOCUSATE COMBO (SENNA PLUS) TABLET (UD) PO SCH (09:25)
[2017-03-12] MEDS: ASPIRIN 325 MG TABLET PO SCH (09:25)
[2017-03-12] MEDS: LISINOPRIL 20 MG TABLET (FP) PO SCH (09:26)
[2017-03-12] MEDS: MULTIVITAMINS (DAILY MVI) TABLET (FP) PO SCH (09:27)
[2017-03-12] MEDS: GABAPENTIN 300 MG CAPSULE (FP) PO SCH (09:27)
[2017-03-12] MEDS: HYDROCHLOROTHIAZIDE 25 MG TABLET (FP) PO SCH (09:27)
[2017-03-12] MEDS: FERROUS SO4 325 MG TABLET (FP) PO SCH (09:27)
[2017-03-12] MEDS: oxyCODONE HCL 10 MG SUSTAINED ACTING TABLET PO SCH (09:28)
--- NOTE | 2017-03-12 09:48 | SPEC ---
DATE OF OPERATION: 03/10/2017 PREOPERATIVE DIAGNOSIS: Degenerative joint disease, left knee. POSTOPERATIVE DIAGNOSIS: Degenerative joint disease, left knee. PROCEDURE: Left total knee replacement with robotic-assisted navigation (Makoplasty). SURGICAL ATTENDING: Mahad Ayon M.D. BRONZE PLATER: Carolina Lebron ANESTHESIA: Regional and spinal. CLOSURE: A cemented Triathlon knee system with a 3 femur, 3 tibia, 9 polyethylene, a 32 patella, number 1 Vicryl for fascia, 0 and 2-0 for subcutaneous, 3-0 Monocryl subcuticular with skin glue for skin, 4-0 undyed Vicryl for pin sites. ESTIMATED BLOOD LOSS: Negligible. COMPLICATIONS: None. CONDITION: To recovery room in stable condition. DESCRIPTION OF OPERATIVE PROCEDURE: Patient was taken to the operating room on March 10, 2017. Regional and general anesthesia was administered by the anesthesiologist. IV Kefzol and TXA were administered by the anesthesiologist. Well-padded pneumatic tourniquet was placed on the proximal thigh. The left lower extremity was prepped and draped in the usual sterile fashion. The leg was exsanguinated with an Esmarch bandage, and tourniquet was inflated to 275 mmHg. A 12 to 15-cm longitudinal midline incision was incised while centered over the patella. The dissection was carried down to the level of the extensor mechanism with sufficient flaps made to adequately perform the procedure. A medial parapatellar arthrotomy was then performed. We made a cuff of tissue on the patella for later closure. The patella was inverted, the knee was flexed up. The fat pad was excised. The subperiosteal dissection was on the anteromedial proximal tibia around towards the direction of the MCL. The ACL and the PCL were transected and debrided. The meniscal remnants of the medial and lateral meniscus were debrided and removed. This allowed the knee to be able to "be brought forward." The checkpoints were malleted into the tibia and into the femur. Two threaded pins were drilled anteroposteriorly proximal to the knee through the previous incision, through the anterior cortex, then just engaging the posterior cortex. To these pins was assembled the femoral navigation array. One handbreadth below the tibial tubercle, 2 stab incisions were used to drill 2 threaded pins in parallel fashion into the tibia, again through the anterior cortex and just engaging the posterior cortex. To these pins was fastened the tibial arrays. The knee was then registered with the navigation device with center of rotation of the hip, medial and lateral malleoli, both checkpoints, and multiple points on both the femur and the tibia to ensure excellent registration. The navigation device was directed off the "top of the bubbles" on both the femur and the tibia. The navigation passed within less than 0.5 mm to plan. The knee was then thoroughly inspected to remove all osteophytes both medially, laterally, and on the femur and the tibia, and whatever osteophytes were available for dissection. The knee was then taken to extension and to flexion, and stressed in both varus and valgus to assess flexion gaps. The virtual position of the components on the navigation device were then manipulated to optimize the position and to ensure equal gaps in both flexion and extension, and both medially and laterally. The robot was then brought into the field and was registered. The cuts were then made both on the femur and on the tibia as to plan. All osteophytes posteriorly were then removed as well. The gaps were then measured again in flexion and extension to be equal in both flexion and extension and medial and laterally. The femoral notch was then made, as we were doing a posterior stabilizing component, with the appropriate sized box. Trial reduction of the femur achieved excellent [id number] fit. A tibial baseplate of appropriate polyethylene thickness was "floated in the knee." It was ensured to be in the excellent position by navigation devices and was pinned in place. The knee was taken through a range of motion, and found to have excellent stability throughout flexion and extension. The patella was calibrated for thickness and osteotomized down to the appropriate level. The appropriate lollipop was used to drill the lug holes in the patella and the trial button was applied. The knee was taken through a range of motion and found to have excellent tracking of the patella, and patella from full extension to full flexion. Trial components were removed, the keel was punched and drilled, and a sclerotic bone on the tibia was drilled to help with cement interdigitation. The knee was thoroughly irrigated with the pulse antibiotic chief station engineer. The real components were then cemented in using monitored arrangement cement techniques with antibiotic cement, and pressurization and extension. After the cement was hardened, the knee was thoroughly inspected to remove any extra cement. The real polyethylene component was then clipped into place. Range of motion, stability, and tracking were as described earlier. The checkpoints and the pins were removed. The knee was thoroughly irrigated with antibiotic irrigation. Vancomycin powder was placed into the knee for antibiotic prophylaxis. The medial parapatellar arthrotomy was then closed using number 1 Vicryl interrupted suture. After closure of the deep layer, the knee was taken through a range of motion, and found to have excellent stability of the patella with no dislocation and no undue tension on the repair. The subcutaneous was pulse antibiotic irrigated, and was then closed with 0 and 2-0, 3-0 Monocryl subcuticular with the skin glue for the skin. The distal tibial pin site was irrigated thoroughly as well and then closed with 4-0 undyed Vicryl. A sterile Aquacel dressing was applied, followed by a Larry dressing. Tourniquet was deflated. Total tourniquet time was approximately 75 minutes. No complications. Patient was awakened from anesthesia and transferred to recovery room in stable condition. Postoperative x-rays revealed excellent position of the components. Jenny [id number]
--- NOTE | 2017-03-13 17:45 | PATH ---
Surgical Pathology Report Patient Name: MIRELA FRIAS Med. Rec. #: [id number] /Age/Gender: 1970 (Age: 46) / F Account: [id number] Location: [facility] MED-SURG Taken: 03/10/2017 Received: 03/10/2017 Reported: 03/13/2017 Physicians: Mahad Ayon M.D. Specimen(s) Received LEFT KNEE BONES Clinical History Osteoarthritis left knee Final Diagnosis KNEE BONES, LEFT, TOTAL KNEE REPLACEMENT: DEGENERATIVE JOINT DISEASE. Electronically Signed Mariana Nicole M.D. Gross Description Received in formalin labeled "left knee bones," is a 12.0 x 10.5 x 2.2 cm aggregate of porter, irregular portions of bone and soft tissue, consistent with knee bones. There are no areas of eburnation identified. The articular surfaces are porter-yellow and diffusely granular. The underlying trabecular bone is yellow and hard. Sugar Refinery Supervisor sections are submitted in one cassette, following decalcification. 03/11/2017 [facility]03/11/2017
== END 2017-03-12 11:10 | disposition home health service (06) | DRG 470 ==
LOC: FM/S 10:33
PROVIDERS: ADMIT Orthopaedic Surgery; ATTEND Orthopaedic Surgery
PROC: 8E0Y0CZ Robotic Assisted Procedure of Lower Extremity, Open Approach (ICD-10-PCS; 2017-03-10)
PROC: 0SRD0J9 Replacement of Left Knee Joint with Synthetic Substitute, Cemented, Open Approach (ICD-10-PCS; principal; 2017-03-10 12:30)
DX: M17.12 Unilateral primary osteoarthritis, left knee (principal); Z68.42 Body mass index [BMI] 45.0-49.9, adult; E66.01 Morbid (severe) obesity due to excess calories; I10 Essential (primary) hypertension; Z79.84 Long term (current) use of oral hypoglycemic drugs; E11.9 Type 2 diabetes mellitus without complications
CPT/HCPCS: 36415; 73560-TC-LT; 84703; 85027; 88304-TC; 88311-TC; 94010; 94760; 97116-GP; 97162-GP

== ENCOUNTER 2018-03-03 15:14 | Emergency (ER) | payer OTHER ==
--- NOTE | 2018-03-03 15:21 | PDOC ---
Rapid Medical Evaluation Time Seen by Provider: 03/03/18 15:17 Medical Evaluation: Allergies Allergy/AdvReac Type Severity Reaction Status Date / Time shellfish derived Allergy Severe Hives Verified 03/03/17 17:51 No Known Drug Allergies Allergy Verified 03/03/17 17:51 03/03/18 15:17 I have performed a brief in-person evaluation of this patient. The patient presents with a chief complaint of: worsening of chronic R knee pain , dx w/ torn meniscus in past. Does not currently have an orthopedist Pertinent physical exam findings: Has JENNYFER in place to R knee I have ordered the following:nothing The patient will proceed to the ED for further evaluation Discharge Disposition - Diagnosis Knee pain Qualifiers: Chronicity: acute Laterality: right Qualified Code(s): M25.561 - Pain in right knee - Referrals - Patient Instructions - Post Discharge Activity
[2018-03-03 16:00] VITALS: BMI 50.0
[2018-03-03] MEDS ORDERED: ALBUTEROL SO4 2.5/IPRATROPIUM 0.5 INH SOL 3 ML VIAL.NEB. NEB ONE ×3 (16:14→19:03)
--- NOTE | 2018-03-03 16:17 | PDOC ---
History of Present Illness - General Chief Complaint: Weakness Stated Complaint: weakness Time Seen by Provider: 03/03/18 15:17 History Source: Patient Exam Limitations: No Limitations - History of Present Illness Initial Comments: 03/03/18 16:07 47f with pmh of asthma, dm2 and left knee replacement presents to the ED with shortness of breath, chest pain, on/off blurry vision and generalized muscle pain since waking up this morning. Tried using her albuterol inhaler with no improvement. Upon waking up she also felt palpitations now resolved. Took 2x85mg aspirin yesterday for her chest pain. Says it's worse today. Never intubated or hospital for asthma. 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 The patient denies fever, chills, n/v/d, recent travel, recent surgeries or prolonged periods of immobilizations. Denies dysuria, frequency, urgency and hematuria. Allergies: NKA Past surgical history: tubal ligation Social history:1 pack of cigarette a week. Remote history of cocaine use. Past History - Past Medical History Allergies/Adverse Reactions: Allergies Allergy/AdvReac Type Severity Reaction Status Date / Time shellfish derived Allergy Severe Hives Verified 03/03/18 16:00 No Known Drug Allergies Allergy Verified 03/03/18 16:00 Home Medications: Ambulatory Orders Lisinopril/Hydrochlorothiazide [Lisinopril-Hctz 20-25 mg Tab] 20 mg PO DAILY 06/02 metFORMIN XR [Glucophage Xr -] 500 mg PO DAILY 10/23/12 Aspirin [ASA -] 325 mg PO DAILY@0800 tablet 03/10/17 Ferrous Sulfate [Feosol] 325 mg PO DAILY 03/10/17 Oxycodone HCl/Acetaminophen [Percocet 5-325 mg Tablet] 1 - 2 tab PO Q6H #50 tab MDD 8 03/10/17 Prednisone [Prednisone 50 MG TABLETS] 50 mg PO DAILY #4 tablet 03/03/18 Anemia: Yes Asthma: Yes Cancer: No Cardiac Disorders: No CVA: No COPD: No CHF: No Dementia: No Diabetes: Yes GI Disorders: Yes (ULCER) Disorders: No HTN: Yes Hypercholesterolemia: No Liver Disease: No Psychiatric Problems: Yes (ANXIETY.) Seizures: No Thyroid Disease: No - Surgical History Abdominal Surgery: Yes Appendectomy: No Cardiac Surgery: No Cholecystectomy: Yes Lung Surgery: No Neurologic Surgery: No Orthopedic Surgery: Yes (LEFT KNEE ARTHROSCOPY 04/2016) - Suicide/Smoking/Psychosocial Hx Smoking Status: Yes Smoking History: Never smoked Have you smoked in the past 12 months: No Number of Cigarettes Smoked Daily: 4 Information on smoking cessation initiated: No 'Breaking Loose' booklet given: 05/05/16 Hx Alcohol Use: No Drug/Substance Use Hx: No Substance Use Type: None Hx Substance Use Treatment: No Review of Systems - Review of Systems Able to Perform ROS?: Yes Is the patient limited Surinamese proficient: No Constitutional: No: Symptoms Reported HEENTM: Yes: Blurred Vision, Nose Congestion Respiratory: Yes: Cough, SOB with Exertion, Productive cough. No: Hemoptysis Cardiac (ROS): Yes: Chest Pain, Palpitations ABD/GI: No: Symptoms Reported : No: Symptoms Reported Musculoskeletal: Yes: Muscle Pain Integumentary: No: Symptoms Reported Neurological: No: Symptoms reported All Other Systems: Reviewed and Negative *Physical Exam - Vital Signs Last Vital Signs Temp Pulse Resp BP Pulse Ox 97.6 F 72 16 146/74 100 03/03/18 15:33 03/03/18 15:33 03/03/18 15:33 03/03/18 15:33 03/03/18 15:33 - Physical Exam General Appearance: Yes: Appropriately Dressed, Mild Distress, Obese HEENT: positive: EOMI, MICHAEL, Nasal Congestion Respiratory/Chest: positive: Decreased Breath Sounds, Wheezing. negative: Chest Tender Cardiovascular: positive: Regular Rhythm, Regular Rate, S1, S2 Gastrointestinal/Abdominal: positive: Normal Bowel Sounds, Soft, Protuberent. negative: Tender Extremity: positive: Normal Capillary Refill, Normal Inspection, Normal Range of Motion Integumentary: positive: Normal Color, Dry, Warm Neurologic: positive: Fully Oriented, Alert, Normal Mood/Affect, Normal Response , Motor Strength 5/5 Moderate Sedation - Procedure Monitoring Vital Signs: Procedure Monitoring Vital Signs Temperature 97.6 F 03/03/18 15:33 Pulse Rate 72 03/03/18 15:33 Respiratory Rate 16 03/03/18 15:33 Blood Pressure 146/74 03/03/18 15:33 O2 Sat by Pulse Oximetry (%) 100 03/03/18 15:33 ED Treatment Course - LABORATORY CBC & Chemistry Diagram: 03/03/18 16:30 03/03/18 16:30 Medical Decision Making - Medical Decision Making 03/03/18 19:10 asthma exacerbation vs PE vs PNA vs VT vs COPD vs CHF Patient PERCs out. Right leg is tender but not swollen. Duplex negative. BNP negative, likely not CHF. EKG: Anterolateral Junctional rhythm. Neg trops. Chest xray negative for pneumonia or infiltrate. Will treat for asthma exacerbation. duonebs, solumedrol. reassess. *DC/Admit/Observation/Transfer Diagnosis at time of Disposition: Asthma exacerbation - Discharge Dispostion Disposition: HOME Condition at time of disposition: Improved Decision to Admit order: No - Prescriptions Prescriptions: Prednisone [Prednisone 50 MG TABLETS] 50 mg PO DAILY #4 tablet - Referrals Referrals: Rudy Eduardo [Primary Care Provider] - - Patient Instructions Printed Discharge Instructions: DI for Asthma -- Adult Additional Instructions: Follow up with your primary doctor within the next 2-3 days. Come back to the emergency department for any new, worsening or concerning symptom. - Post Discharge Activity Forms/Work/School Notes: Back to Work
[2018-03-03 16:39] VITALS: BP 146/79; PULSE 75; TEMP 98.4
[2018-03-03 17:28] LABS: BASO % 0.7 % (0-2.0); EOS % 3.2 % (0-4.5); HEMATOCRIT 33.4 % (32.4-45.2); HEMOGLOBIN 10.8 GM/dL (10.7-15.3); MCH 23.8 pg (25.7-33.7); MCHC 32.5 g/dl (32.0-36.0); MEAN CELL VOLUME 73.2 fl (80-96); MEAN PLT VOLUME 8.9 fl (7.5-11.1); MONO % 8.7 % (3.8-10.2); NEUT % 58.4 % (42.8-82.8); PLATELET COUNT 315 K/MM3 (134-434); RBC 4.56 M/mm3 (3.60-5.2); RDW 18.6 % (11.6-15.6); WHITE BLOOD COUNT 4.5 K/mm3 (4.0-10.0)
[2018-03-03 17:44] LABS: URINE APPEARANCE CLOUDY; URINE BILIRUBIN NEGATIVE (<2.0 mg/dL); URINE COLOR YELLOW; URINE GLUCOSE (UA) NEGATIVE (NEGATIVE); URINE KETONE NEGATIVE (NEGATIVE); URINE LEUK ESTERASE TRACE (NEGATIVE); URINE NITRITE NEGATIVE (NEGATIVE); URINE PROTEIN NEGATIVE (NEGATIVE); URINE UROBILINOGEN NEGATIVE mg/dL (0.2-1.0)
[2018-03-03 17:53] LABS: EPI CELLS MANY /HPF (FEW); URINE MUCUS RARE
[2018-03-03 17:58] LABS: ALBUMIN 3.5 g/dl (3.4-5.0); ALK PHOS 111 U/L (45-117); ANION GAP 9 MMOL/L (8-16); BILIRUBIN,TOTAL 0.3 mg/dL (0.2-1); BLOOD UREA NITROGEN 19 mg/dL (7-18); CALCIUM 9.3 mg/dL (8.5-10.1); CHLORIDE 106 mmol/L (98-107); CO2 28 mmol/L (21-32); CREATININE 1.2 mg/dL (0.55-1.3); GLUCOSE,RANDOM 130 mg/dL (74-106); N-TERMINAL BNP 6.9 pg/ml (5-125); POTASSIUM 3.5 mmol/L (3.5-5.1); SGOT/AST 20 U/L (15-37); SGPT/ALT 38 U/L (13-61); SODIUM 142 mmol/L (136-145); TOT PROT 7.1 g/dl (6.4-8.2)
[2018-03-03] MEDS ORDERED: methylPREDNISolone NA SUCC 125 MG/2 ML VIAL IVPUSH ONE (19:05)
[2018-03-03] MEDS ORDERED: ACETAMINOPHEN 1000 MG/100 ML VIAL (NON FORMULARY) IVPB ONE (19:26)
--- NOTE | 2018-03-03 19:37 | PDOC ---
Attending Attestation - Resident Resident Name: AnselmoDamon - ED Attending Attestation I have performed the following: I have examined & evaluated the patient, The case was reviewed & discussed with the resident, I agree w/resident's findings & plan, Exceptions are as noted - HPI HPI: 03/03/18 19:35 The patient is a 47 year old female with a significant PMH of previous polysubstance abuse, asthma, DM, left knee replacement 1 year ago who presents to the emergency department with shortness of breath since this morning. Patient notes the shortness of breath is exacerbated with walking. Patient was using her inhaler at home with no improvement. The patient also reports chest tightness, productive cough and lightheadedness after coughing. Patient reports she had similar symptoms yesterday for which she took aspirin with minimal relief. Patient notes her symptoms today were worse prompting her to come to the ER for an evaluation. Patient denies sick contact or recent travel. Denies long periods of immobilization. No recent changes in her medications. Is not on exogenous hormones. Patient has not required any hospitalizations or intubations for her asthma. The patient denies palpitations, leg swelling, headache Denies fever, chills, nausea, vomit, diarrhea and constipation. Denies dysuria, frequency, urgency and hematuria. Allergies: NKA Past surgical history: tubal ligation Social history: No reported alcohol, drug or cigarette use. - Physicial Exam PE: 03/03/18 19:36 GENERAL: Awake, alert, and fully oriented, in no acute distress EYES: PERRLA, EOMI, sclera anicteric, conjunctiva clear. OU 20/20 VA ENT: +perforated nasal septum, oropharynx clear without exudates. Moist mucosa NECK: Normal ROM, supple, no lymphadenopathy, JVD, or masses LUNGS: +prolonged exp phase, +mild R sided exp wheezing, no crackles. No increased work of breathing HEART: Regular rate and rhythm, normal S1 and S2, no murmurs, rubs or gallops ABDOMEN: Soft, nontender, normoactive bowel sounds. No guarding, no rebound. No masses EXTREMITIES: Normal range of motion, no edema. No cords, erythema, or tenderness NEUROLOGICAL: Normal speech, cranial nerves intact, equal strength and sensation b/l SKIN: Warm, Dry, normal turgor, no rashes or lesions noted. \ - Medical Decision Making 03/03/18 19:40 47yo F hx MMP including asthma presents to the ED with SOB, cough, chest tightness, lightheadness when coughing. Vitals unremarkable. Exam with prolonged exp phase and mild wheezing. Pt reports mild improvement in sxs after 1 duoneb. Plan to treat with 3 back to back duonebs, steroids, Mg 2G and reassess. Also plan for CXR. Labs and flu swab unremarkable. Pt meets no PERC criteria, thus unlikely PE EKG is non ischemic, and trop neg, unlikely ACS. Case signed out to oncoming attending for re-evaluation and dispo. Heart Score/ECG Review #1 03/03/18 19:38 Twelve-lead EKG was performed and reviewed by me. Normal sinus rhythm, rate 74. Normal axis and intervals. No ST elevations. T wave inversion in lead 3 and T- wave flattening in aVF, V5 to V6. When compared to EKG from 06/29/2016, no significant changes.
[2018-03-03] MEDS ORDERED: predniSONE 20 MG TABLET (UD) PO ONE (19:40)
[2018-03-03] MEDS ORDERED: ACETAMINOPHEN 325 MG TABLET (FP) PO ONE (19:40)
[2018-03-03] MEDS ORDERED: ACETAMINOPHEN 325 MG TABLET (FP) ONE (19:48)
[2018-03-03] MEDS ORDERED: predniSONE 20 MG TABLET (UD) ONE (19:48)
--- NOTE | 2018-03-04 12:51 | EKG ---
Test Reason : Blood Pressure : / mmHG Vent. Rate : 074 BPM Atrial Rate : 074 BPM P-R Int : 160 ms QRS Dur : 082 ms QT Int : 412 ms P-R-T Axes : 044 053 027 degrees QTc Int : 457 ms NORMAL SINUS RHYTHM NONSPECIFIC T WAVE ABNORMALITY ABNORMAL ECG WHEN COMPARED WITH ECG OF 29-JUN-2016 16:31, NO SIGNIFICANT CHANGE WAS FOUND Confirmed by RASHEED FROST MD ([id number]) on 03/04/2018 12:50:55 PM Referred By: Confirmed By:RASHEED FROST MD
== END 2018-03-03 20:43 | disposition home or self-care (01) ==
LOC: JER 15:14
PROC: 3E0F7GC Introduction of Other Therapeutic Substance into Respiratory Tract, Via Natural or Artificial Opening (ICD-10-PCS; principal; 2018-03-03)
DX: J45.901 Unspecified asthma with (acute) exacerbation (principal); E11.9 Type 2 diabetes mellitus without complications
CPT/HCPCS: 36415; 71046-TC-FY; 80053; 81003; 81015; 83880; 84484; 85025; 87086; 87804; 93005; 93010; 93970-TC; 99285-25

== ENCOUNTER 2018-08-31 10:53 | Emergency (ER) | payer OTHER ==
[2018-08-31 11:01] VITALS: BMI 48.7
--- NOTE | 2018-08-31 11:29 | PDOC ---
History of Present Illness - General Chief Complaint: Lightheaded Stated Complaint: HYPERTENSION/DIZZY/HEADACHE Time Seen by Provider: 08/31/18 11:26 History Source: Patient - History of Present Illness Timing/Duration: other Past History - Past Medical History Allergies/Adverse Reactions: Allergies Allergy/AdvReac Type Severity Reaction Status Date / Time shellfish derived Allergy Severe Hives Verified 03/03/18 16:00 No Known Drug Allergies Allergy Verified 03/03/18 16:00 Home Medications: Ambulatory Orders Lisinopril/Hydrochlorothiazide [Lisinopril-Hctz 20-25 mg Tab] 20 mg PO DAILY 06/02 metFORMIN XR [Glucophage Xr -] 500 mg PO DAILY 10/23/12 Aspirin [ASA -] 325 mg PO DAILY@0800 tablet 03/10/17 Ferrous Sulfate [Feosol] 325 mg PO DAILY 03/10/17 Oxycodone HCl/Acetaminophen [Percocet 5-325 mg Tablet] 1 - 2 tab PO Q6H #50 tab MDD 8 03/10/17 Prednisone [Prednisone 50 MG TABLETS] 50 mg PO DAILY #4 tablet 03/03/18 Anemia: Yes Asthma: Yes Cancer: No Cardiac Disorders: No CVA: No COPD: No CHF: No Dementia: No Diabetes: Yes GI Disorders: Yes (ULCER) Disorders: No HTN: Yes Hypercholesterolemia: No Liver Disease: No Psychiatric Problems: Yes (ANXIETY.) Seizures: No Thyroid Disease: No - Surgical History Abdominal Surgery: Yes Appendectomy: No Cardiac Surgery: No Cholecystectomy: Yes Lung Surgery: No Neurologic Surgery: No Orthopedic Surgery: Yes (LEFT KNEE ARTHROSCOPY 04/2016) - Suicide/Smoking/Psychosocial Hx Smoking Status: Yes Smoking History: Current every day smoker Have you smoked in the past 12 months: Yes Number of Cigarettes Smoked Daily: 4 Information on smoking cessation initiated: No 'Breaking Loose' booklet given: 05/05/16 Hx Alcohol Use: No Drug/Substance Use Hx: No Substance Use Type: None Hx Substance Use Treatment: No Review of Systems - Review of Systems Constitutional: No: Chills, Fever HEENTM: Yes: Blurred Vision Respiratory: No: Shortness of Breath Cardiac (ROS): No: Chest Pain ABD/GI: No: Nausea, Vomiting Neurological: Yes: Headache, Dizziness. No: Numbness, Tingling, Weakness *Physical Exam - Vital Signs Last Vital Signs Temp Pulse Resp BP Pulse Ox 97.6 F 66 16 121/64 96 08/31/18 10:58 08/31/18 10:58 08/31/18 10:58 08/31/18 10:58 08/31/18 10:58 - Physical Exam Comments: 08/31/18 12:13 michel uncomfortable, sitting on stretcher w/ eyes closed 2/2 pain per pt General Appearance: Yes: Appropriately Dressed, Mild Distress HEENT: positive: Normal Voice Neck: positive: Supple Respiratory/Chest: positive: Lungs Clear, Normal Breath Sounds. negative: Respiratory Distress Cardiovascular: positive: Regular Rate, S1, S2 Gastrointestinal/Abdominal: positive: Soft. 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 negative: Motor Strength 5/5 ED Treatment Course - LABORATORY CBC & Chemistry Diagram: 08/31/18 12:11 08/31/18 12:11 Medical Decision Making - Medical Decision Making 08/31/18 11:27 47-year-old female, history of HTN and DM, here with severe headache 2 days. Pain diffuse, throbbing and constant, worse when patient opens her eyes. No h/o similar ENG per pt. Also reports dizziness. No vertigo, nausea, vomiting, slurred speech, focal weakness. neck pain, URI sxs or f/c. Patient states she took her blood pressure today and that it was 183/104. Patient admits that her blood pressure is always high at home, but for unclear reasons, has not discuss that with her PMD. States she is only on lisinopril, which she is compliant with. Pt also c/o intermittent sob of unclear duration, not worse w/ exertion. No SOB at this time and denies CP, diaphoresis, n/v. No known h/o CAD or CHF. No cardiac w/u in past per pt see exam ENG in setting of poorly controlled HTN Michel uncomfortable but stable w/ no no focal deficits -CTH -labs -EKG given intermittent SOB -dispo pending 08/31/18 14:11 Labs w/ mild hypoK that was repleted. Mild leukopenia to 3.3 of unknown etiology , new based on records. W/u otherwise negative. Pt reports feeling better w/ meds and remains stable here. Now requesting food. Will dc w/ PMD f/u this week to discuss BP management. Reasons to return d/w pt *DC/Admit/Observation/Transfer Diagnosis at time of Disposition: Dizziness Headache Qualifiers: Headache type: unspecified Headache chronicity pattern: acute headache Intractability: not intractable Qualified Code(s): R51 - Headache - Discharge Dispostion Disposition: HOME Condition at time of disposition: Improved - Referrals - Patient Instructions Printed Discharge Instructions: DI for Headache Additional Instructions: The cause of your headache and dizziness is unclear at this time as your labs and CAT scan did not reveal a source. Take Tylenol as needed and follow-up with your doctor this week to discuss better blood pressure management - Post Discharge Activity
[2018-08-31] MEDS ORDERED: ACETAMINOPHEN 1000 MG/100 ML VIAL (NON FORMULARY) IVPB ONE (12:12)
[2018-08-31] MEDS ORDERED: METOCLOPRAMIDE HCL INJECTION 10 MG/2 ML VIAL IVPB ONE (12:12)
[2018-08-31 12:27] LABS: BASO % 0.8 % (0-2.0); EOS % 2.8 % (0-4.5); HEMATOCRIT 40.3 % (32.4-45.2); LYMPH % 28.2 % (8-40); MCH 24.9 pg (25.7-33.7); MCHC 32.4 g/dl (32.0-36.0); MEAN CELL VOLUME 76.9 fl (80-96); NEUT % 60.2 % (42.8-82.8); RBC 5.24 M/mm3 (3.60-5.2); RDW 20.2 % (11.6-15.6); WHITE BLOOD COUNT 3.3 K/mm3 (4.0-10.0)
[2018-08-31 12:29] LABS: PLATELET COUNT 230 K/MM3 (134-434)
[2018-08-31] MEDS ORDERED: METOCLOPRAMIDE HCL INJECTION 10 MG/2 ML VIAL ONE (12:31)
[2018-08-31 12:51] LABS: EPI CELLS 17.1 /HPF (0-5/HPF); HYALINE CASTS 8 /lpf (0-8); PH,URINE 5.5 (5.0-8.0); URINE APPEARANCE CLOUDY; URINE BACTERIA 393.8 /hpf (NEGATIVE); URINE BILIRUBIN NEGATIVE (NEGATIVE); URINE COLOR YELLOW; URINE GLUCOSE (UA) NEGATIVE (NEGATIVE); URINE KETONE NEGATIVE (NEGATIVE); URINE LEUK ESTERASE NEGATIVE (NEGATIVE); URINE NITRITE NEGATIVE (NEGATIVE); URINE PROTEIN NEGATIVE (NEGATIVE); URINE RBC 3 /hpf (0-4); URINE UROBILINOGEN 0.2 mg/dL (0.2-1.0); URINE WBC 2 /hpf (0-5)
[2018-08-31] MEDS ORDERED: ACETAMINOPHEN INJECTION 100 ML IVPB ONE (13:25)
[2018-08-31] MEDS ORDERED: ACETAMINOPHEN 325 MG TABLET (FP) PO ONE (13:32)
[2018-08-31 13:41] LABS: ALBUMIN 3.8 g/dl (3.4-5.0); BILIRUBIN,TOTAL 0.5 mg/dL (0.2-1); BLOOD UREA NITROGEN 16.8 mg/dL (7-18); CALCIUM 9.4 mg/dL (8.5-10.1); POTASSIUM 3.2 mmol/L (3.5-5.1); TOT PROT 7.4 g/dl (6.4-8.2)
[2018-08-31] MEDS ORDERED: POTASSIUM CHLORIDE ORAL LIQUID 20 MEQ/15 ML PO ONE (13:45)
[2018-08-31] MEDS ORDERED: ACETAMINOPHEN 325 MG TABLET (FP) ONE (13:46)
[2018-08-31] MEDS ORDERED: POTASSIUM CHLORIDE TABS 20 MEQ TABLET.ER (FP) PO ONE (14:05)
[2018-08-31 14:34] VITALS: BP 141/88; PULSE 71; TEMP 97.9
--- NOTE | 2018-08-31 16:58 | EKG ---
Test Reason : Blood Pressure : / mmHG Vent. Rate : 061 BPM Atrial Rate : 061 BPM P-R Int : 170 ms QRS Dur : 092 ms QT Int : 476 ms P-R-T Axes : 047 049 040 degrees QTc Int : 479 ms NORMAL SINUS RHYTHM NORMAL ECG WHEN COMPARED WITH ECG OF 03-MAR-2018 15:30, NO SIGNIFICANT CHANGE WAS FOUND Confirmed by MD Marquez Daniel ([id number]) on 08/31/2018 4:58:19 PM Referred By: Confirmed By:Oc Marquez MD
== END 2018-08-31 14:42 | disposition home or self-care (01) ==
LOC: JER 10:53
PROC: 3E033NZ Introduction of Analgesics, Hypnotics, Sedatives into Peripheral Vein, Percutaneous Approach (ICD-10-PCS; principal; 2018-08-31)
PROC: 3E033GC Introduction of Other Therapeutic Substance into Peripheral Vein, Percutaneous Approach (ICD-10-PCS; 2018-08-31)
DX: I10 Essential (primary) hypertension (principal); R51 Headache; R42 Dizziness and giddiness; E11.9 Type 2 diabetes mellitus without complications; Z79.84 Long term (current) use of oral hypoglycemic drugs; D64.9 Anemia, unspecified; E87.6 Hypokalemia; D72.819 Decreased white blood cell count, unspecified
CPT/HCPCS: 36415; 70450-TC; 80053; 81003; 82550; 82553; 84484; 85025; 86850; 86900; 86901; 93005; 93010; 96374; 96375; 99281-25

== ENCOUNTER 2018-11-09 18:45 | Emergency (ER) | payer OTHER ==
[2018-11-09 18:51] VITALS: BMI 49.2
[2018-11-09] MEDS ORDERED: ASPIRIN 81 MG CHEWABLE TABLETS PO ONE (18:51)
--- NOTE | 2018-11-09 18:51 | PDOC ---
Rapid Medical Evaluation Time Seen by Provider: 11/09/18 18:50 Medical Evaluation: Allergies Allergy/AdvReac Type Severity Reaction Status Date / Time shellfish derived Allergy Severe Hives Verified 03/03/18 16:00 No Known Drug Allergies Allergy Verified 03/03/18 16:00 11/09/18 18:50 HPI: C/O high blood glucose at home feels ENG and hot PE: No gross deficits ORDERS: labs Discharge Disposition - Diagnosis Hypertension, Diabetes mellitus - Referrals - Patient Instructions - Post Discharge Activity
[2018-11-09] MEDS ORDERED: ASPIRIN 81 MG CHEWABLE TABLETS ONE (20:43)
[2018-11-09 21:08] LABS: BASO % 1.1 % (0-2.0); EOS % 2.3 % (0-4.5); HEMATOCRIT 35.4 % (32.4-45.2); HEMOGLOBIN 11.8 GM/dL (10.7-15.3); LYMPH % 33.4 % (8-40); MCH 27.1 pg (25.7-33.7); MCHC 33.4 g/dl (32.0-36.0); MEAN CELL VOLUME 81.1 fl (80-96); MONO % 9.3 % (3.8-10.2); NEUT % 53.9 % (42.8-82.8); PLATELET COUNT 201 K/MM3 (134-434); RBC 4.37 M/mm3 (3.60-5.2); RDW 16.9 % (11.6-15.6); WHITE BLOOD COUNT 3.7 K/mm3 (4.0-10.0)
[2018-11-09] MEDS ORDERED: SODIUM CHLORIDE 1,000 ML IV STA (21:12)
--- NOTE | 2018-11-09 21:12 | PDOC ---
History of Present Illness - General Chief Complaint: Blood Sugar Problem Stated Complaint: HYPERTENSION/HYPERGLYCEMIA Time Seen by Provider: 11/09/18 18:50 - History of Present Illness Initial Comments: 11/09/18 21:30 The patient is a 48 year old female with a history of HTN, Anemia, DM who presents for evaluation of high blood sugar and high blood pressure. The patient reports that her blood sugar has been ranging between 300s and 500s today with associated dizziness despite her home metformin prompting her presentation to the ED for further evaluation. She notes that her blood pressure was also elevated today and notes that she ran out of her home blood pressure medications several days ago. She reports a mild headache, but otherwise denies fevers, chills, vision changes, SOB, chest pain, nausea, vomiting, abdominal pain, or changes with urination or bowel movements. Past History - Past Medical History Allergies/Adverse Reactions: Allergies Allergy/AdvReac Type Severity Reaction Status Date / Time shellfish derived Allergy Severe Hives Verified 03/03/18 16:00 No Known Drug Allergies Allergy Verified 03/03/18 16:00 Home Medications: Ambulatory Orders Lisinopril/Hydrochlorothiazide [Lisinopril-Hctz 20-25 mg Tab] 20 mg PO DAILY 06/02 metFORMIN XR [Glucophage Xr -] 500 mg PO DAILY 10/23/12 Aspirin [ASA -] 325 mg PO DAILY@0800 tablet 03/10/17 Ferrous Sulfate [Feosol] 325 mg PO DAILY 03/10/17 Oxycodone HCl/Acetaminophen [Percocet 5-325 mg Tablet] 1 - 2 tab PO Q6H #50 tab MDD 8 03/10/17 Prednisone [Prednisone 50 MG TABLETS] 50 mg PO DAILY #4 tablet 03/03/18 Lisinopril/Hydrochlorothiazide [Lisinopril-Hctz 20-25 mg Tab] 1 each PO DAILY # 20 tablet 11/09/18 Anemia: Yes Asthma: Yes Cancer: No Cardiac Disorders: No CVA: No COPD: No CHF: No Dementia: No Diabetes: Yes GI Disorders: Yes (ULCER) Disorders: No HTN: Yes Hypercholesterolemia: No Liver Disease: No Psychiatric Problems: Yes (ANXIETY.) Seizures: No Thyroid Disease: No - Surgical History Abdominal Surgery: Yes Appendectomy: No Cardiac Surgery: No Cholecystectomy: Yes Lung Surgery: No Neurologic Surgery: No Orthopedic Surgery: Yes (LEFT KNEE ARTHROSCOPY 04/2016) - Suicide/Smoking/Psychosocial Hx Smoking Status: Yes Smoking History: Never smoked Have you smoked in the past 12 months: Yes Number of Cigarettes Smoked Daily: 4 Information on smoking cessation initiated: No 'Breaking Loose' booklet given: 05/05/16 Hx Alcohol Use: No Drug/Substance Use Hx: No Substance Use Type: None Hx Substance Use Treatment: No Review of Systems - Review of Systems Comments:: 11/09/18 21:37 Constitutional: No fevers, chills, fatigue, malaise HEENT: No Rhinorrhea, nasal congestion, visual changes Cardiovascular: No chest pain, syncope, palpitations, lightheadedness Respiratory: No Cough, SOB, Hemoptysis, Gastrointestinal: No Abdominal pain, Nausea, Vomiting, Constipation, Diarrhea, Melena Genitourinary: No Dysuria, Frequency, Urgency, Hesitancy, Hematuria, Flank pain Musculoskeletal: No Myalgia, arthralgia Skin: No rashes, itching, bruising, pallor Neurologic: Headache, Dizziness. No Numbness, Weakness, or Tingling Psychiatric: No Hallucinations. No SI or HI *Physical Exam - Vital Signs Last Vital Signs Temp Pulse Resp BP Pulse Ox 98.2 F 74 20 168/103 H 98 11/09/18 18:47 11/09/18 18:47 11/09/18 18:47 11/09/18 18:47 11/09/18 18:47 - Physical Exam Comments: 11/09/18 21:38 General Appearance: Nourished. No Apparent Distress HEENT: EOMI, MICHAEL. No Pharyngeal Erythema, Tonsillar Exudate, Tonsillar Erythema Neck: No Cervical Lymphadenopathy Respiratory/Chest: Lungs Clear, Normal Breath Sounds. No Crackles, Rales, Rhonchi, Wheezing Cardiovascular: Regular Rhythm, Regular Rate. No Murmur, Gallops, Rubs Gastrointestinal/Abdominal: Normal Bowel Sounds, Soft. No Guarding, Rebound, Tenderness Musculoskeletal: No CVA Tenderness Extremity: Normal Capillary Refill Integumentary: Normal Color, Dry, Warm Neurologic: speech lang path II-XII NML intact, Fully Oriented, Alert, Normal Mood/Affect, Normal Response, Motor Strength 5/5. Heart Score/ECG Review #1 ECG reviewed & interpreted by me at: 22:34 11/09/18 22:34 HR 78 KS 174 QRS 90 QTc 456 Normal Sinus Rhythm No Acute ST Changes Unchanged from prior ED Treatment Course - LABORATORY CBC & Chemistry Diagram: 11/09/18 20:46 11/09/18 20:46 - Medications Given in the ED: ED Medications Discontinued Medications Generic Name Dose Route Start Last Admin Trade Name Johnna PRN Reason Stop Dose Admin Aspirin 162 mg 11/09/18 18:51 11/09/18 21:09 Asa - PO 11/09/18 18:52 162 mg ONCE ONE Administration Medical Decision Making - Medical Decision Making 11/09/18 21:38 The patient is a 48 year old female with a history of HTN, Anemia, DM who presents for evaluation of high blood sugar and high blood pressure. Differential includes but is not limited to: Hyperglycemia, Hypertensive urgency , Infectious, Metabolic Derangement. Given the patient's history and physical exam, we will obtain a cbc, cmp, troponin, coags, ekg to evaluate further. We will treat with tylenol, iv fluids and the patient's home lisinopril/ hydrochlorothiazide. We will continue to monitor and reassess while here in the ED. 11/09/18 23:08 CBC, troponin are unremarkable. CMP demonstrates a glucose of 240s. The patient was reassessed and reports improvement in their symptoms with improved. We are comfortable discharging the patient home in stable condition. Patient made aware of impression and plan, return precautions discussed including but not limited to worsening pain or symptoms, fevers, or signs of infection, chest pain, respiratory distress, inability to tolerate oral intake, dehydration, syncope, or neurologic changes. The patient is to follow up with PMD as recommended within 1 week, follow up information provided and the patient will call for an appointment. The patient is to take medications as instructed for duration of time and continue with supportive care, avoid triggers and precipitants. Patient is safe for outpatient follow-up. We have refilled the patient's home blood pressure medications. 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: unspecified mcc insulin use status Diabetes mellitus complication status: with other specified complication Qualified Code(s ): E13.69 - Other specified diabetes mellitus with other specified complication - Discharge Dispostion Disposition: HOME Condition at time of disposition: Stable Decision to Admit order: No - Prescriptions Prescriptions: Lisinopril/Hydrochlorothiazide [Lisinopril-Hctz 20-25 mg Tab] 1 each PO DAILY # 20 tablet - Referrals - Patient Instructions Printed Discharge Instructions: DI for High Blood Pressure, DI for Hyperglycemia -- Adult Additional Instructions: 1) Please follow-up with your primary care doctor in the next 2-3 days. Please call tomorrow to schedule a follow up appointment. If you cannot follow up with your doctor within 1 week please return to the Emergency Department for any urgent issues. 2) Your laboratory and EKG results were normal here in the ER. 3) If you have any worsening of symptoms or any other concerns please return to the ER immediately. Return if worsening symptoms including fevers, headache, vomiting, visual or hearing disturbances, abdominal pain, chest pain, shortness of breath, syncope, dehydration, inability to take things by mouth/vomiting, altered mental status, or worsening concerning symptoms. 4) Please continue taking your home medications as directed. Side effects may include upset stomach, abdominal pain, vomiting, or diarrhea. Do not drink alcohol with your medications. - Post Discharge Activity
[2018-11-09 21:19] LABS: INR 0.86 (0.83-1.09); PROTHROMBIN TIME (PATIENT) 10.1 SEC (9.7-13.0)
[2018-11-09] MEDS ORDERED: HYDROCHLOROTHIAZIDE 25 MG TABLET (FP) PO ONE ×2 (21:20→21:25)
[2018-11-09] MEDS ORDERED: LISINOPRIL 20 MG TABLET (FP) PO ONE (21:20)
[2018-11-09] MEDS ORDERED: HYDROCHLOROTHIAZIDE 25 MG TABLET (FP) ONE (21:28)
[2018-11-09] MEDS ORDERED: LISINOPRIL 20 MG TABLET (FP) ONE (21:29)
[2018-11-09] MEDS ORDERED: ACETAMINOPHEN 1000 MG/100 ML VIAL (NON FORMULARY) IVPB ONE (21:37)
[2018-11-09 21:38] LABS: ALBUMIN 3.5 g/dl (3.4-5.0); BILIRUBIN,TOTAL 0.4 mg/dL (0.2-1); BLOOD UREA NITROGEN 16.5 mg/dL (7-18); CALCIUM 9.6 mg/dL (8.5-10.1); CREATININE 0.9 mg/dL (0.55-1.3); MAGNESIUM 1.5 mg/dL (1.8-2.4); POTASSIUM 3.3 mmol/L (3.5-5.1); TOT PROT 6.8 g/dl (6.4-8.2)
[2018-11-09 22:46] VITALS: BP 153/76; PULSE 64; TEMP 98.4
[2018-11-09] MEDS ORDERED: ACETAMINOPHEN INJECTION 100 ML IVPB ONE (22:49)
--- NOTE | 2018-11-09 23:04 | PDOC ---
Documentation entered by Angelita Augustin SCRIBE, acting as scribe for Kathy Regalado DO. Kathy Regalado DO: This documentation has been prepared by the Charli dial Adrianna, SCRIBE, under my direction and personally reviewed by me in its entirety. I confirm that the documentation accurately reflects all work, treatment, procedures, and medical decision making performed by me. Attending Attestation - Resident Resident Name: Oc Ahmadi - ED Attending Attestation I have performed the following: I have examined & evaluated the patient, The case was reviewed & discussed with the resident, I agree w/resident's findings & plan - HPI HPI: The patient is a 48 year old female, with a significant PMH of previous polysubstance abuse, asthma, HTN, anemia, and DM, who presents to the ED for evaluation of elevated blood sugar and hypertension for one day. Patient notes her blood sugar level has been fluctuating throughout the day (ranging from 300 to 500), with associated dizziness. Patient notes no relief when taking metformin today. She additionally notes an increase in her blood pressure today , and notes she has not taken her BP medications in a few days as she has run out. Patient endorses a slight headache while in the ED. Allergies: Shellfish Surgical history: Left knee replacement, tubal ligation Social history: Denies EtOH, tobacco, or illicit drug use. Previous polysubstance abuse. - Physicial Exam PE: Agree with resident exam. - Medical Decision Making 11/09/18 23:03 48-year-old female with elevated blood sugar elevated hypertension with admitted noncompliance with medication Antihypertensives and IV fluids given in the emergency department Blood sugar and blood pressure have improved Patient will be discharged with a antihypertensive prescription refill and has been advised to follow-up with her primary care physician regarding possible initiation of insulin
--- NOTE | 2018-11-10 10:16 | EKG ---
Test Reason : Blood Pressure : / mmHG Vent. Rate : 078 BPM Atrial Rate : 078 BPM P-R Int : 174 ms QRS Dur : 090 ms QT Int : 400 ms P-R-T Axes : 056 046 027 degrees QTc Int : 456 ms NORMAL SINUS RHYTHM POSSIBLE LEFT ATRIAL ENLARGEMENT BORDERLINE ECG WHEN COMPARED WITH ECG OF 31-AUG-2018 12:07, NONSPECIFIC T WAVE ABNORMALITY NO LONGER EVIDENT IN LATERAL LEADS Confirmed by SHEREEN RIVAS, LADAN ([id number]) on 11/10/2018 10:16:04 AM Referred By: Confirmed By:LADAN REGAN MD
== END 2018-11-10 00:24 | disposition home or self-care (01) ==
LOC: JER 18:45
PROC: 3E033NZ Introduction of Analgesics, Hypnotics, Sedatives into Peripheral Vein, Percutaneous Approach (ICD-10-PCS; principal; 2018-11-09)
PROC: 3E0337Z Introduction of Electrolytic and Water Balance Substance into Peripheral Vein, Percutaneous Approach (ICD-10-PCS; 2018-11-09)
DX: E13.69 Other specified diabetes mellitus with other specified complication (principal); I10 Essential (primary) hypertension
CPT/HCPCS: 36415; 80053; 82550; 83735; 84484; 85025; 85610; 93005; 93010; 96361; 96374; 99284-25; J0131; J7030

== ENCOUNTER 2020-10-01 09:28 | Day surgery (SDC) | payer MEDICARE, OTHER ==
[2020-09-27 13:35] VITALS: BMI 50.8
[2020-10-01] MEDS ORDERED: MIDAZOLAM HCL 2 MG/2 ML SINGLE DOSE VIAL ONE ×2 (10:35)
[2020-10-01 12:20] VITALS: TEMP 97.8
[2020-10-01 13:06] VITALS: BP 121/65; PULSE 74
== END 2020-10-01 12:15 | disposition home or self-care (01) ==
LOC: FASU-ENDO 09:28
PROVIDERS: ATTEND Internal Medicine Gastroenterology
PROC: 0DB98ZX Excision of Duodenum, Via Natural or Artificial Opening Endoscopic, Diagnostic (ICD-10-PCS; 2020-10-01)
PROC: 0DB68ZX Excision of Stomach, Via Natural or Artificial Opening Endoscopic, Diagnostic (ICD-10-PCS; 2020-10-01)
PROC: 0D748DZ Dilation of Esophagogastric Junction with Intraluminal Device, Via Natural or Artificial Opening Endoscopic (ICD-10-PCS; 2020-10-01)
PROC: 0DJD8ZZ Inspection of Lower Intestinal Tract, Via Natural or Artificial Opening Endoscopic (ICD-10-PCS; principal; 2020-10-01 10:53)
DX: Z12.11 Encounter for screening for malignant neoplasm of colon (principal); K29.50 Unspecified chronic gastritis without bleeding; K31.7 Polyp of stomach and duodenum; K31.9 Disease of stomach and duodenum, unspecified
CPT/HCPCS: 82962; 88305-TC; 88342-TC

== ENCOUNTER 2021-08-07 09:49 | Emergency (ER) | payer OTHER ==
[2021-08-07 10:14] VITALS: BMI 59.5
[2021-08-07] MEDS ORDERED: diazePAM 5 MG TABLET PO ONE (12:18)
[2021-08-07] MEDS ORDERED: KETOROLAC TROMETHAMINE 30 MG/1 ML VIAL IM ONE (12:18)
[2021-08-07] MEDS ORDERED: diazePAM 5 MG TABLET ONE (12:25)
[2021-08-07] MEDS ORDERED: KETOROLAC TROMETHAMINE 30 MG/1 ML VIAL ONE (12:25)
[2021-08-07 16:29] VITALS: BP 143/80; PULSE 72; TEMP 98
== END 2021-08-07 16:29 | disposition home or self-care (01) ==
LOC: JER 09:49
PROC: 3E0233Z Introduction of Anti-inflammatory into Muscle, Percutaneous Approach (ICD-10-PCS; principal; 2021-08-07)
DX: M25.512 Pain in left shoulder (principal)
CPT/HCPCS: 72125-TC; 73030-TC-LT-FY; 96372; 99285-25

== ENCOUNTER 2022-08-25 10:30 | Observation (INO) | payer OTHER ==
[2022-08-25 10:58] VITALS: BMI 44.6
[2022-08-25] MEDS ORDERED: ACETAMINOPHEN 1000 MG/100 ML BAG IVPB ONE ×2 (11:09→18:13)
[2022-08-25] MEDS ORDERED: LIDOCAINE 5% TOPICAL PATCH TP ONE ×2 (11:09→11:10)
[2022-08-25] MEDS ORDERED: LIDOCAINE 5% TOPICAL PATCH ONE (11:18)
[2022-08-25] MEDS ORDERED: ACETAMINOPHEN INJECTION 100 ML IVPB ONE (11:18)
[2022-08-25] MEDS ORDERED: MECLIZINE HCL 25 MG TABLET (FP) PO ONE (11:38)
[2022-08-25 12:01] LABS: BASO % 0.6 % (0-2.0); EOS % 2.1 % (0-4.5); HEMOGLOBIN 13.1 GM/dL (10.7-15.3); LYMPH % 30.9 % (8-40); MCH 29.8 pg (25.7-33.7); MCHC 33.5 g/dl (32.0-36.0); MEAN CELL VOLUME 89.1 fl (80-96); MEAN PLT VOLUME 8.5 fl (7.5-11.1); MONO % 6.8 % (3.8-10.2); NEUT % 59.6 % (42.8-82.8); PLATELET COUNT 222 10^3/uL (134-434); RBC 4.38 M/mm3 (3.60-5.2); RDW 14.3 % (11.6-15.6); WHITE BLOOD COUNT 3.5 K/mm3 (4.0-10.0)
[2022-08-25 12:49] LABS: POTASSIUM 3.3 mmol/L (3.5-5.1)
[2022-08-25 12:51] LABS: CALCIUM 9.3 mg/dL (8.5-10.1)
[2022-08-25 12:52] LABS: ALBUMIN 3.2 g/dl (3.4-5.0); BLOOD UREA NITROGEN 17.1 mg/dL (7-18)
[2022-08-25 12:56] LABS: BILIRUBIN,TOTAL 0.4 mg/dL (0.2-1); TOT PROT 6.9 g/dl (6.4-8.2)
[2022-08-25] MEDS ORDERED: POTASSIUM CHLORIDE ORAL LIQUID 20 MEQ/15 ML PO ONE (13:11)
[2022-08-25] MEDS ORDERED: POTASSIUM CHLORIDE ORAL LIQUID 20 MEQ/15 ML ONE (13:14)
[2022-08-25] MEDS ORDERED: MECLIZINE HCL 25 MG TABLET (FP) ONE (13:14)
[2022-08-25 13:46] LABS: MAGNESIUM 1.7 mg/dL (1.8-2.4)
[2022-08-25] MEDS ORDERED: MAGNESIUM 1GM/D5W - 1 GM/100 ML IVPB IVPB ONE (14:23)
[2022-08-25] MEDS ORDERED: ACETAMINOPHEN 325 MG TABLET (FP) PO PRN (15:44)
[2022-08-25] MEDS ORDERED: INSULIN (NOVOLOG) ASPART 100 UNITS/ML 10ML VIAL ONE (17:57)
[2022-08-25] MEDS: INSULIN SLIDING SCALE (NOVOLOG) 1 VIAL SQ SCH ×2 (18:00→21:29)
[2022-08-25] MEDS: INSULIN (LEVEMIR) 100 UNITS/ML UNITS SQ SCH (21:26)
[2022-08-25] MEDS ORDERED: LIDOCAINE PATCH REMOVAL MC ONE ×2 (22:00)
[2022-08-26 00:30] VITALS: RESP 20
[2022-08-26 06:45] LABS: BASO % 0.7 % (0-2.0); EOS % 2.8 % (0-4.5); HEMATOCRIT 39.1 % (32.4-45.2); HEMOGLOBIN 12.9 GM/dL (10.7-15.3); LYMPH % 36.3 % (8-40); MCH 29.7 pg (25.7-33.7); MCHC 32.9 g/dl (32.0-36.0); MEAN CELL VOLUME 90.2 fl (80-96); MONO % 9.2 % (3.8-10.2); PLATELET COUNT 216 10^3/uL (134-434); RBC 4.34 M/mm3 (3.60-5.2); RDW 14.4 % (11.6-15.6); WHITE BLOOD COUNT 3.2 K/mm3 (4.0-10.0)
[2022-08-26] MEDS: INSULIN SLIDING SCALE (NOVOLOG) 1 VIAL SQ SCH ×2 (06:59→12:11)
[2022-08-26 07:04] LABS: POTASSIUM 3.6 mmol/L (3.5-5.1)
[2022-08-26 07:06] LABS: CALCIUM 9.1 mg/dL (8.5-10.1)
[2022-08-26 07:07] LABS: BLOOD UREA NITROGEN 16.2 mg/dL (7-18); MAGNESIUM 1.9 mg/dL (1.8-2.4)
[2022-08-26 07:09] LABS: CREATININE 0.9 mg/dL (0.55-1.3)
[2022-08-26 07:10] LABS: PHOSPHOROUS 3.1 mg/dL (2.5-4.9)
[2022-08-26 07:11] LABS: BILIRUBIN,TOTAL 0.5 mg/dL (0.2-1); TOT PROT 6.4 g/dl (6.4-8.2)
[2022-08-26] MEDS: INSULIN (LEVEMIR) 100 UNITS/ML UNITS SQ SCH (09:58)
[2022-08-26] MEDS ORDERED: FAMOTIDINE 10 MG TABLET PO SCH (10:00)
[2022-08-26] MEDS ORDERED: ENOXAPARIN NA (PORCINE) 40 MG/0.4 ML DISP.SYRIN SQ SCH (10:00)
[2022-08-26] MEDS ORDERED: LISINOPRIL 20 MG TABLET PO SCH (10:00)
[2022-08-26] MEDS ORDERED: SODIUM CHLORIDE 1,000 ML IV SCH (12:30)
[2022-08-26] MEDS ORDERED: SODIUM CHLORIDE 500 ML IV STA (13:24)
[2022-08-26 16:14] VITALS: BP 154/89; PULSE 72; TEMP 98.5
== END 2022-08-26 16:30 | disposition home or self-care (01) ==
LOC: JER 10:30 → JERBED 13:53 → J4W 16:40
PROVIDERS: ADMIT Internal Medicine; ATTEND Internal Medicine
PROC: 3E033GC Introduction of Other Therapeutic Substance into Peripheral Vein, Percutaneous Approach (ICD-10-PCS; principal; 2022-08-25)
PROC: 3E0333Z Introduction of Anti-inflammatory into Peripheral Vein, Percutaneous Approach (ICD-10-PCS; 2022-08-25)
PROC: 3E0337Z Introduction of Electrolytic and Water Balance Substance into Peripheral Vein, Percutaneous Approach (ICD-10-PCS; 2022-08-25)
PROC: 3E013VG Introduction of Insulin into Subcutaneous Tissue, Percutaneous Approach (ICD-10-PCS; 2022-08-25)
PROC: 3E013GC Introduction of Other Therapeutic Substance into Subcutaneous Tissue, Percutaneous Approach (ICD-10-PCS; 2022-08-25)
DX: R07.89 Other chest pain (principal); R06.02 Shortness of breath; R29.6 Repeated falls; R42 Dizziness and giddiness; I45.81 Long QT syndrome; I10 Essential (primary) hypertension; E11.9 Type 2 diabetes mellitus without complications; F17.210 Nicotine dependence, cigarettes, uncomplicated; E66.9 Obesity, unspecified; Z68.41 Body mass index [BMI] 40.0-44.9, adult; Z79.84 Long term (current) use of oral hypoglycemic drugs; W19.XXXA Unspecified fall, initial encounter; Z91.81 History of falling; Y93.9 Activity, unspecified; Y92.9 Unspecified place or not applicable
CPT/HCPCS: 0241U-QW; 36415; 70450-TC; 71045-TC-FY; 76882-TC-RT-FY; 80053; 82962; 83036; 83735; 84100; 84443; 84484; 85025; 93005; 93010; 96361; 96365; 96372; 96375; 97116-GP; 97161-GP; 99285-25; G0378

== ENCOUNTER 2022-09-22 20:11 | Emergency (ER) | payer OTHER ==
[2022-09-22 20:18] VITALS: TEMP 97.8; BMI 47.4
[2022-09-22] MEDS ORDERED: cloNIDine HCL 0.1 MG TABLET PO ONE (23:02)
[2022-09-22] MEDS ORDERED: cloNIDine HCL 0.1 MG TABLET ONE (23:13)
[2022-09-23] MEDS ORDERED: traMADol HCL 50 MG TABLET PO ONE (00:03)
[2022-09-23 00:05] LABS: ALBUMIN 3.2 g/dl (3.4-5.0); BILIRUBIN,TOTAL 0.4 mg/dL (0.2-1); BLOOD UREA NITROGEN 18.3 mg/dL (7-18); CALCIUM 9.3 mg/dL (8.5-10.1); POTASSIUM 3.7 mmol/L (3.5-5.1); TOT PROT 6.7 g/dl (6.4-8.2)
[2022-09-23] MEDS ORDERED: traMADol HCL 50 MG TABLET ONE (00:51)
[2022-09-23] MEDS ORDERED: SUMATRIPTAN SUCCINATE 6 MG/0.5 ML VIAL SQ ONE (01:55)
[2022-09-23] MEDS ORDERED: SUMATRIPTAN SUCCINATE 6 MG/0.5 ML VIAL ONE (01:56)
[2022-09-23] MEDS ORDERED: METOCLOPRAMIDE HCL INJECTION 10 MG/2 ML VIAL IVPB ONE (04:13)
[2022-09-23] MEDS ORDERED: ACETAMINOPHEN 1000 MG/100 ML BAG IVPB ONE (04:13)
[2022-09-23] MEDS ORDERED: METOCLOPRAMIDE HCL INJECTION 10 MG/2 ML VIAL ONE (04:26)
[2022-09-23] MEDS ORDERED: ACETAMINOPHEN INJECTION 100 ML IVPB ONE (04:26)
[2022-09-23 06:36] VITALS: BP 169/101; PULSE 80; RESP 16
== END 2022-09-23 06:35 | disposition home or self-care (01) ==
LOC: JER 20:11
PROC: 3E033NZ Introduction of Analgesics, Hypnotics, Sedatives into Peripheral Vein, Percutaneous Approach (ICD-10-PCS; principal; 2022-09-23)
PROC: 3E033GC Introduction of Other Therapeutic Substance into Peripheral Vein, Percutaneous Approach (ICD-10-PCS; 2022-09-23)
PROC: 3E023GC Introduction of Other Therapeutic Substance into Muscle, Percutaneous Approach (ICD-10-PCS; 2022-09-23)
DX: R51.9 Headache, unspecified (principal)
CPT/HCPCS: 36415; 70450-TC; 70496-TC; 70498-TC; 80053; 99285-25

== ENCOUNTER 2022-11-28 11:43 | Emergency (ER) | payer OTHER ==
[2022-11-28 11:48] VITALS: BP 150/89; PULSE 96; RESP 22; TEMP 98.6; BMI 45.1
[2022-11-28] MEDS ORDERED: LIDOCAINE 5% TOPICAL PATCH TP ONE (12:05)
[2022-11-28] MEDS ORDERED: KETOROLAC TROMETHAMINE 30 MG/1 ML VIAL IM ONE (12:05)
[2022-11-28] MEDS ORDERED: METHOCARBAMOL 500 MG TABLET PO ONE (12:06)
[2022-11-28] MEDS ORDERED: LIDOCAINE 5% TOPICAL PATCH ONE (12:08)
[2022-11-28] MEDS ORDERED: KETOROLAC TROMETHAMINE 30 MG/1 ML VIAL ONE (12:08)
[2022-11-28] MEDS ORDERED: METHOCARBAMOL 500 MG TABLET ONE (12:08)
== END 2022-11-28 13:25 | disposition home or self-care (01) ==
LOC: JERFT 11:43
PROC: 3E0233Z Introduction of Anti-inflammatory into Muscle, Percutaneous Approach (ICD-10-PCS; principal; 2022-11-28)
DX: S20.211A Contusion of right front wall of thorax, initial encounter (principal); S09.90XA Unspecified injury of head, initial encounter; R51.9 Headache, unspecified; R42 Dizziness and giddiness; M54.2 Cervicalgia; R07.89 Other chest pain; M54.9 Dorsalgia, unspecified; M79.641 Pain in right hand; R06.02 Shortness of breath; W10.8XXA Fall (on) (from) other stairs and steps, initial encounter; W22.8XXA Striking against or struck by other objects, initial encounter; Y92.008 Other place in unspecified non-institutional (private) residence as the place of occurrence of the external cause
CPT/HCPCS: 70450-TC; 71250-TC; 72125-TC; 73130-TC-RT-FY; 96372; 99284-25

== ENCOUNTER 2023-08-31 14:23 | Inpatient (IN) | payer OTHER ==
[2023-08-31] MEDS ORDERED: ALBUTEROL SO4 2.5/IPRATROPIUM 0.5 INH SOL 3 ML VIAL.NEB. NEB ONE ×2 (15:26→20:22)
[2023-08-31] MEDS ORDERED: ACETAMINOPHEN INJECTION 100 ML IVPB ONE (15:27)
[2023-08-31 15:36] LABS: BASO % 0.5 % (0-2.0); EOS % 1.4 % (0-4.5); HEMATOCRIT 40.7 % (32.4-45.2); HEMOGLOBIN 13.7 GM/dL (10.7-15.3); LYMPH % 19.8 % (8-40); MCHC 33.7 g/dl (32.0-36.0); MEAN CELL VOLUME 89.2 fl (80-96); MEAN PLT VOLUME 8.4 fl (7.5-11.1); MONO % 9.7 % (3.8-10.2); NEUT % 68.6 % (42.8-82.8); PLATELET COUNT 250 10^3/uL (134-434); RBC 4.56 M/mm3 (3.60-5.2); RDW 14.8 % (11.6-15.6); WHITE BLOOD COUNT 7.4 K/mm3 (4.0-10.0)
[2023-08-31] MEDS: ACETAMINOPHEN 1000 MG/100 ML BAG IVPB ONE (15:37)
[2023-08-31] MEDS: ALBUTEROL SO4 2.5/IPRATROPIUM 0.5 INH SOL 3 ML VIAL.NEB. NEB SCH ×2 (15:37→20:34)
[2023-08-31 15:42] LABS: INR 0.9 (0.83-1.09); PROTHROMBIN TIME (PATIENT) 10.4 SEC (9.7-13.0)
[2023-08-31 15:43] LABS: VENOUS BASE EXCESS 3.6 mmol/L (-2-2); VENOUS O2 SATURATION 83.3 % (70-80); VENOUS PCO2 51.3 mmHg (38-52); VENOUS PH 7.382 (7.310-7.410)
[2023-08-31 15:56] LABS: CHLORIDE 107 mmol/L (98-107); SODIUM 142 mmol/L (136-145)
[2023-08-31 16:00] LABS: CALCIUM 9.1 mg/dL (8.5-10.1); GLUCOSE,RANDOM 331 mg/dL (74-106)
[2023-08-31 16:01] LABS: ALBUMIN 3.1 g/dl (3.4-5.0); BLOOD UREA NITROGEN 13.2 mg/dL (7-18); CO2 29 mmol/L (21-32); MAGNESIUM 1.7 mg/dL (1.8-2.4)
[2023-08-31 16:04] LABS: CREATININE 1.1 mg/dL (0.55-1.3); SGOT/AST 17 U/L (15-37); SGPT/ALT 32 U/L (13-61)
[2023-08-31 16:05] LABS: BILIRUBIN,TOTAL 0.6 mg/dL (0.2-1); TOT PROT 6.8 g/dl (6.4-8.2)
[2023-08-31 16:07] LABS: ALK PHOS 161 U/L (45-117)
[2023-08-31 16:08] LABS: N-TERMINAL BNP 80.5 pg/ml (5-125)
[2023-08-31 16:11] LABS: ANION GAP 6 mmol/L (4-13); POTASSIUM 2.9 mmol/L (3.5-5.1)
[2023-08-31] MEDS ORDERED: DEXAMETHASONE SOD PHOSPHATE 10 MG/1 ML VIAL ONE (16:13)
[2023-08-31] MEDS ORDERED: POTASSIUM CHLORIDE TABS 20 MEQ TABLET.ER (FP) PO ONE (16:13)
[2023-08-31] MEDS ORDERED: KCL 20 MEQ PREMIX BAG 20 MEQ/100 ML INFUS.BAG IVPB SCH (16:15)
[2023-08-31] MEDS: POTASSIUM CHLORIDE TABS 20 MEQ TABLET.ER (FP) PO ONE (16:21)
[2023-08-31] MEDS: DEXAMETHASONE SOD PHOSPHATE 10 MG/1 ML VIAL IVPUSH ONE (16:21)
[2023-08-31] MEDS ORDERED: MAGNESIUM SULFATE IN WATER 2 GM/50 ML IVPB IVPB ONE (16:33)
[2023-08-31] MEDS: MAGNESIUM SULFATE IN WATER 2 GM/50 ML IVPB IVPB ONE (16:45)
[2023-08-31] MEDS ORDERED: ASPIRIN 81 MG CHEWABLE TABLETS PO ONE (17:04)
[2023-08-31] MEDS ORDERED: KCL 10 MEQ IVPB 10 MEQ/100 ML INFUS.BAG IVPB ONE ×3 (17:44→20:22)
[2023-08-31] MEDS: KCL 10 MEQ IVPB 10 MEQ/100 ML INFUS.BAG IVPB SCH (17:52)
[2023-08-31] MEDS ORDERED: ATORVASTATIN CA 20 MG TABLET (FP) ONE (22:01)
[2023-08-31] MEDS ORDERED: ENOXAPARIN NA (PORCINE) 40 MG/0.4 ML DISP.SYRIN SQ ONE (22:01)
[2023-08-31] MEDS ORDERED: INSULIN ASPART SLIDING SCALE (NOVOLOG) 1 VIAL SQ ONE (22:03)
[2023-08-31] MEDS: ATORVASTATIN CA 20 MG TABLET (FP) PO SCH (22:11)
[2023-08-31] MEDS: INSULIN ASPART SLIDING SCALE (NOVOLOG) 1 VIAL SQ SCH (22:11)
[2023-08-31] MEDS: ENOXAPARIN NA (PORCINE) 40 MG/0.4 ML DISP.SYRIN SQ SCH (22:11)
[2023-09-01 01:20] VITALS: BMI 48.0
[2023-09-01] MEDS: SODIUM CHLORIDE 0.45% 1,000 ML IV SCH (02:42)
[2023-09-01] MEDS: INSULIN (NOVOLOG) ASPART 100 UNITS/ML 10ML VIAL SQ ONE (03:24)
[2023-09-01] MEDS: POTASSIUM CHLORIDE TABS 20 MEQ TABLET.ER (FP) PO ONE ×2 (03:32→04:31)
[2023-09-01 06:38] LABS: BASO % 0.2 % (0-2.0); HEMOGLOBIN 13.5 GM/dL (10.7-15.3); LYMPH % 8.5 % (8-40); MCH 29.8 pg (25.7-33.7); MCHC 33.7 g/dl (32.0-36.0); MEAN CELL VOLUME 88.5 fl (80-96); MEAN PLT VOLUME 8.5 fl (7.5-11.1); MONO % 3.4 % (3.8-10.2); NEUT % 87.9 % (42.8-82.8); PLATELET COUNT 256 10^3/uL (134-434); RBC 4.52 M/mm3 (3.60-5.2); RDW 14.6 % (11.6-15.6); WHITE BLOOD COUNT 8.6 K/mm3 (4.0-10.0)
[2023-09-01 06:53] LABS: POTASSIUM 3.5 mmol/L (3.5-5.1)
[2023-09-01 06:57] LABS: CALCIUM 9.2 mg/dL (8.5-10.1)
[2023-09-01 06:58] LABS: ALBUMIN 3.1 g/dl (3.4-5.0); BLOOD UREA NITROGEN 14.4 mg/dL (7-18); MAGNESIUM 1.9 mg/dL (1.8-2.4)
[2023-09-01 07:01] LABS: CREATININE 1.1 mg/dL (0.55-1.3); PHOSPHOROUS 1.8 mg/dL (2.5-4.9)
[2023-09-01 07:02] LABS: BILIRUBIN,TOTAL 0.9 mg/dL (0.2-1)
[2023-09-01] MEDS: predniSONE 20 MG TABLET (UD) PO SCH (10:10)
[2023-09-01] MEDS: NICOTINE 7 MG/24 HOURS TOPICAL PATCH TD SCH (10:11)
[2023-09-01] MEDS: amLODIPine BESYLATE 5 MG TABLET (FP) PO SCH (10:11)
[2023-09-01] MEDS: INSULIN (LEVEMIR) 100 UNITS/ML UNITS SQ SCH (14:48)
[2023-09-01] MEDS: BUDESONIDE/FORMETEROL FUMARATE 160/4.5 mcg INHALER IH SCH (14:51)
[2023-09-01] MEDS: ACETAMINOPHEN 325 MG TABLET (FP) PO PRN (21:47)
[2023-09-02 08:17] LABS: BASO % 0.2 % (0-2.0); EOS % 0.1 % (0-4.5); HEMOGLOBIN 13.4 GM/dL (10.7-15.3); LYMPH % 19.4 % (8-40); MCH 29.7 pg (25.7-33.7); MCHC 33.4 g/dl (32.0-36.0); MEAN CELL VOLUME 88.9 fl (80-96); MEAN PLT VOLUME 8.7 fl (7.5-11.1); MONO % 7.1 % (3.8-10.2); NEUT % 73.2 % (42.8-82.8); PLATELET COUNT 276 10^3/uL (134-434); RBC 4.49 M/mm3 (3.60-5.2); RDW 14.7 % (11.6-15.6); WHITE BLOOD COUNT 7.9 K/mm3 (4.0-10.0)
[2023-09-02 08:28] LABS: POTASSIUM 3.2 mmol/L (3.5-5.1)
[2023-09-02 08:42] LABS: ALBUMIN 3.1 g/dl (3.4-5.0); BLOOD UREA NITROGEN 18.9 mg/dL (7-18); CALCIUM 9.4 mg/dL (8.5-10.1)
[2023-09-02 08:47] LABS: TOT PROT 7.1 g/dl (6.4-8.2)
[2023-09-02 08:50] LABS: BILIRUBIN,TOTAL 0.4 mg/dL (0.2-1)
[2023-09-02] MEDS: POTASSIUM CHLORIDE ORAL LIQUID 20 MEQ/15 ML PO ONE ×2 (12:35→19:54)
[2023-09-02] MEDS: methylPREDNISolone NA SUCC 40 MG/1 ML VIAL IVPUSH SCH (17:17)
[2023-09-02] MEDS: AZITHROMYCIN IVPB 500 MG/250 ML BAG IVPB SCH (17:18)
[2023-09-02] MEDS ORDERED: INSULIN ASPART SLIDING SCALE (NOVOLOG) 1 VIAL SQ SCH (19:15)
[2023-09-02 19:23] LABS: MAGNESIUM 1.9 mg/dL (1.8-2.4)
[2023-09-02] MEDS: SODIUM CHLORIDE 0.45%/POT 20 MEQ/1,000 ML INFUS.BAG IV SCH (19:55)
[2023-09-02 20:39] LABS: MAGNESIUM 1.8 mg/dL (1.8-2.4)
[2023-09-02 20:43] LABS: PHOSPHOROUS 2.2 mg/dL (2.5-4.9)
[2023-09-02 21:08] LABS: CHLORIDE 102 mmol/L (98-107); POTASSIUM 4.2 mmol/L (3.5-5.1); SODIUM 136 mmol/L (136-145)
[2023-09-02 21:10] LABS: ALBUMIN 3.3 g/dl (3.4-5.0); ANION GAP 9 mmol/L (4-13); BLOOD UREA NITROGEN 20.6 mg/dL (7-18); CALCIUM 9.4 mg/dL (8.5-10.1); CO2 25 mmol/L (21-32)
[2023-09-02 21:13] LABS: CREATININE 1.3 mg/dL (0.55-1.3); SGOT/AST 27 U/L (15-37); SGPT/ALT 46 U/L (13-61)
[2023-09-02 21:15] LABS: BILIRUBIN,TOTAL 0.4 mg/dL (0.2-1); TOT PROT 7.2 g/dl (6.4-8.2)
[2023-09-02 21:18] LABS: ALK PHOS 192 U/L (45-117); GLUCOSE,RANDOM 559 mg/dL (74-106)
[2023-09-02] MEDS: NAPH,MB-DB/K PH,MBDB POWDER PACKET PO SCH (21:34)
[2023-09-02] MEDS ORDERED: methylPREDNISolone NA SUCC 40 MG/1 ML VIAL IVPUSH SCH (22:00)
[2023-09-02] MEDS: INSULIN ASPART SLIDING SCALE (NOVOLOG) 1 VIAL SQ SCH (22:04)
[2023-09-03] MEDS: POTASSIUM PHOSPHATE IVPB ONE (06:09)
[2023-09-03] MEDS: SODIUM CHLORIDE 0.45% IVPB ONE (06:09)
[2023-09-03] MEDS: MAGNESIUM SULFATE IVPB ONE (06:09)
[2023-09-03] MEDS: methylPREDNISolone NA SUCC 40 MG/1 ML VIAL IVPUSH SCH (06:13)
[2023-09-03 07:48] LABS: HEMATOCRIT 41.5 % (32.4-45.2); HEMOGLOBIN 13.8 GM/dL (10.7-15.3); MCH 29.4 pg (25.7-33.7); MCHC 33.2 g/dl (32.0-36.0); MEAN CELL VOLUME 88.6 fl (80-96); MEAN PLT VOLUME 8.6 fl (7.5-11.1); PLATELET COUNT 266 10^3/uL (134-434); RBC 4.68 M/mm3 (3.60-5.2); WHITE BLOOD COUNT 9.9 K/mm3 (4.0-10.0)
[2023-09-03 08:00] LABS: POTASSIUM 3.9 mmol/L (3.5-5.1)
[2023-09-03 08:06] LABS: CALCIUM 9.6 mg/dL (8.5-10.1)
[2023-09-03 08:07] LABS: ALBUMIN 3.3 g/dl (3.4-5.0); BLOOD UREA NITROGEN 17.5 mg/dL (7-18)
[2023-09-03 08:10] LABS: CREATININE 0.9 mg/dL (0.55-1.3); PHOSPHOROUS 2.8 mg/dL (2.5-4.9)
[2023-09-03 08:11] LABS: BILIRUBIN,TOTAL 0.6 mg/dL (0.2-1); TOT PROT 7.3 g/dl (6.4-8.2)
[2023-09-03] MEDS: PROMETHAZINE HCL ORAL SYRUP 6.25 MG/5 ML (BULK BOTTLE) PO PRN (18:35)
[2023-09-03] MEDS: INSULIN (LEVEMIR) 100 UNITS/ML UNITS SQ SCH (22:09)
[2023-09-04] MEDS: AZITHROMYCIN 500 MG TABLET PO SCH (15:09)
[2023-09-04 21:21] VITALS: RESP 18
[2023-09-04] MEDS: INSULIN (LEVEMIR) 100 UNITS/ML UNITS SQ SCH (21:28)
[2023-09-04] MEDS: LIDOCAINE PATCH REMOVAL MC SCH (22:55)
[2023-09-05 08:57] LABS: HEMATOCRIT 39.8 % (32.4-45.2); HEMOGLOBIN 13.5 GM/dL (10.7-15.3); MCH 30.1 pg (25.7-33.7); MCHC 33.9 g/dl (32.0-36.0); MEAN CELL VOLUME 88.6 fl (80-96); MEAN PLT VOLUME 8.5 fl (7.5-11.1); PLATELET COUNT 236 10^3/uL (134-434); POTASSIUM 3.6 mmol/L (3.5-5.1); RBC 4.49 M/mm3 (3.60-5.2); RDW 15.1 % (11.6-15.6); WHITE BLOOD COUNT 5.5 K/mm3 (4.0-10.0)
[2023-09-05 09:04] LABS: CALCIUM 9.2 mg/dL (8.5-10.1)
[2023-09-05 09:05] LABS: MAGNESIUM 1.9 mg/dL (1.8-2.4)
[2023-09-05 09:08] LABS: CREATININE 1.1 mg/dL (0.55-1.3)
[2023-09-05 09:09] LABS: BILIRUBIN,TOTAL 0.6 mg/dL (0.2-1); TOT PROT 6.4 g/dl (6.4-8.2)
[2023-09-05] MEDS: LIDOCAINE 5% TOPICAL PATCH TP SCH (09:57)
[2023-09-05] MEDS ORDERED: IBUPROFEN 400 MG TABLET (FP) PO PRN (10:30)
[2023-09-05 10:35] LABS: ANISOCYTOSIS 0; MACROCYTOSIS 0
[2023-09-05] MEDS: traMADol HCL 50 MG TABLET PO ONE ×2 (11:11→22:43)
[2023-09-05] MEDS: ACETAMINOPHEN 325 MG TABLET (FP) PO PRN (16:39)
[2023-09-05] MEDS: LIDOCAINE 4% PATCH TP ONE (22:16)
[2023-09-05] MEDS: KETOROLAC TROMETHAMINE 15 MG/ML VIAL IVPUSH ONE (22:48)
[2023-09-06 08:56] LABS: BASO % 0.4 % (0-2.0); EOS % 1.9 % (0-4.5); HEMATOCRIT 41.9 % (32.4-45.2); HEMOGLOBIN 14.2 GM/dL (10.7-15.3); LYMPH % 27.5 % (8-40); MCH 30.1 pg (25.7-33.7); MCHC 33.9 g/dl (32.0-36.0); MEAN CELL VOLUME 88.7 fl (80-96); MEAN PLT VOLUME 8.7 fl (7.5-11.1); NEUT % 62.2 % (42.8-82.8); PLATELET COUNT 238 10^3/uL (134-434); RBC 4.73 M/mm3 (3.60-5.2); RDW 15.1 % (11.6-15.6); WHITE BLOOD COUNT 5.1 K/mm3 (4.0-10.0)
[2023-09-06 09:08] LABS: POTASSIUM 3.8 mmol/L (3.5-5.1)
[2023-09-06 09:10] LABS: ALBUMIN 3.2 g/dl (3.4-5.0); BLOOD UREA NITROGEN 14.4 mg/dL (7-18); CALCIUM 9.1 mg/dL (8.5-10.1)
[2023-09-06 09:11] LABS: MAGNESIUM 1.8 mg/dL (1.8-2.4)
[2023-09-06 09:15] LABS: BILIRUBIN,TOTAL 0.6 mg/dL (0.2-1)
[2023-09-06 09:16] LABS: TOT PROT 6.7 g/dl (6.4-8.2)
[2023-09-06] MEDS: oxyCODONE HCL 5 MG TABLET PO ONE (10:21)
[2023-09-06] MEDS: LIDOCAINE PATCH REMOVAL MC SCH ×2 (10:24)
[2023-09-06 10:34] VITALS: BP 145/89; PULSE 82; TEMP 97.9
[2023-09-06] MEDS ORDERED: LIDOCAINE 5% TOPICAL PATCH TP SCH (20:00)
== END 2023-09-06 13:08 | disposition home health service (06) | DRG 202 ==
LOC: JER 14:23 → JERBED 16:22 → J7W 09-01 00:30 → OBSVTOIN 09-03 10:37
PROVIDERS: ADMIT Internal Medicine; ATTEND Internal Medicine
DX: J45.901 Unspecified asthma with (acute) exacerbation (principal); I50.32 Chronic diastolic (congestive) heart failure; Z68.41 Body mass index [BMI] 40.0-44.9, adult; E11.9 Type 2 diabetes mellitus without complications; E66.01 Morbid (severe) obesity due to excess calories; G47.33 Obstructive sleep apnea (adult) (pediatric); F17.210 Nicotine dependence, cigarettes, uncomplicated; I25.10 Atherosclerotic heart disease of native coronary artery without angina pectoris; I11.0 Hypertensive heart disease with heart failure; R94.31 Abnormal electrocardiogram [ECG] [EKG]
CPT/HCPCS: 0241U-QW; 36415; 71046-TC-FY; 80053; 80061; 82010; 82803; 82962; 83036; 83735; 83880; 84100; 84132; 84484; 85025; 85027; 85610; 85730; 86850; 86900; 86901; 87651; 93005; 93010; 93306-TC; 94010; 94640; 94660; 94761; 99285-25; G0378; J0131; J1100; J3480

== ENCOUNTER 2023-11-30 11:19 | Emergency (ER) | payer OTHER ==
[2023-11-30 11:35] VITALS: BP 156/84; PULSE 68; RESP 17; TEMP 98.6; BMI 43.5
[2023-11-30] MEDS ORDERED: ACETAMINOPHEN INJECTION 100 ML ONE (12:09)
[2023-11-30] MEDS ORDERED: KETOROLAC TROMETHAMINE 15 MG/ML VIAL ONE (12:09)
[2023-11-30 12:41] LABS: BASO % 0.9 % (0-2.0); EOS % 2.2 % (0-4.5); HEMATOCRIT 42.5 % (32.4-45.2); HEMOGLOBIN 14.2 GM/dL (10.7-15.3); LYMPH % 38.5 % (8-40); MCH 29.3 pg (25.7-33.7); MCHC 33.6 g/dl (32.0-36.0); MEAN CELL VOLUME 87.4 fl (80-96); MEAN PLT VOLUME 8.6 fl (7.5-11.1); MONO % 7.3 % (3.8-10.2); NEUT % 51.1 % (42.8-82.8); PLATELET COUNT 206 10^3/uL (134-434); RBC 4.86 M/mm3 (3.60-5.2); WHITE BLOOD COUNT 3.5 K/mm3 (4.0-10.0)
[2023-11-30 12:42] LABS: PH,URINE 6.5 (5.0-8.0); URINE APPEARANCE CLEAR; URINE BILIRUBIN NEGATIVE (NEGATIVE); URINE COLOR YELLOW; URINE GLUCOSE (UA) 3+ (NEGATIVE); URINE KETONE NEGATIVE (NEGATIVE); URINE LEUK ESTERASE NEGATIVE (NEGATIVE); URINE NITRITE NEGATIVE (NEGATIVE); URINE PROTEIN NEGATIVE (NEGATIVE); VENOUS BASE EXCESS 3.9 mmol/L (-2-2); VENOUS O2 SATURATION 85.7 % (70-80); VENOUS PCO2 50.8 mmHg (38-52); VENOUS PH 7.389 (7.310-7.410)
[2023-11-30 12:48] LABS: INR 0.84 (0.83-1.09); PROTHROMBIN TIME (PATIENT) 9.5 SEC (9.7-13.0)
[2023-11-30 12:51] LABS: ACTIVATED PTT 27.2 SECONDS (25.2-36.5)
[2023-11-30 13:00] LABS: POTASSIUM 3.5 mmol/L (3.5-5.1)
[2023-11-30 13:02] LABS: CALCIUM 9.6 mg/dL (8.5-10.1)
[2023-11-30 13:03] LABS: ALBUMIN 3.6 g/dl (3.4-5.0); BLOOD UREA NITROGEN 14.7 mg/dL (7-18); MAGNESIUM 1.9 mg/dL (1.8-2.4)
[2023-11-30 13:06] LABS: CREATININE 0.9 mg/dL (0.55-1.3)
[2023-11-30 13:07] LABS: BILIRUBIN,TOTAL 0.4 mg/dL (0.2-1)
[2023-11-30] MEDS: ACETAMINOPHEN 1000 MG/100 ML BAG IVPB ONE (13:08)
[2023-11-30] MEDS: KETOROLAC TROMETHAMINE 15 MG/ML VIAL IVPUSH ONE (13:09)
[2023-11-30 13:11] LABS: N-TERMINAL BNP 23.9 pg/ml (5-125)
[2023-11-30] MEDS ORDERED: traMADol HCL 50 MG TABLET ONE (14:29)
[2023-11-30] MEDS: traMADol HCL 50 MG TABLET PO ONE (14:39)
== END 2023-11-30 15:03 | disposition home or self-care (01) ==
LOC: JER 11:19
PROC: 3E033NZ Introduction of Analgesics, Hypnotics, Sedatives into Peripheral Vein, Percutaneous Approach (ICD-10-PCS; principal; 2023-11-30)
PROC: 3E0333Z Introduction of Anti-inflammatory into Peripheral Vein, Percutaneous Approach (ICD-10-PCS; 2023-11-30)
DX: R07.89 Other chest pain (principal); R10.84 Generalized abdominal pain; G62.9 Polyneuropathy, unspecified; M79.10 Myalgia, unspecified site; R42 Dizziness and giddiness; R20.0 Anesthesia of skin; R20.2 Paresthesia of skin; R53.81 Other malaise; Z20.822 Contact with and (suspected) exposure to COVID-19
CPT/HCPCS: 0241U-QW; 36415; 71046-TC-FY; 80053; 81003; 82803; 82962; 83690; 83735; 83880; 84443; 84484; 85025; 85610; 85730; 93005; 93010; 96374; 96375; 99285-25; J0131